=== PATIENT | female | born 1995 | race Caucasian/White ===

== ENCOUNTER 2024-11-22 11:57 | Outpatient (CLI) | payer MEDICAID, SELFPAY ==
[2024-11-22 12:55] LABS: Hematocrit 36.6 % (37.0-47.0); Hemoglobin 12.2 g/dL (12.0-15.0); Mean Corpuscular HGB Conc 33.3 g/dl (32-36); Mean Corpuscular Hemoglobin 29.1 pg (26-34); Mean Corpuscular Volume 87.4 fl (80-100); Platelet Count Result 288 k/mm3 (150-375); Red Blood Count 4.19 M/mm3 (4.2-5.4)
[2024-11-22 14:02] LABS: HIV 1/2 Ab P24 Ag Result Negative (Negative)
--- OUTSIDE RECORDS SUMMARY | 2024-11-22 14:04 | XMS_ITS | Encounter Summary ---
Author Organization [facility] Address [address] [facility] Attn: [place] [address] Care Team Providers Care Glacing Machine Tender Name Role Phone Amado Sylvester DO Primary Care Provider [phone] Encounter Details Date Type Department Care Team (Late st Contact Info) Description 07/06/2006 Outpatient Historical Vikram Correia MD [address] [place] [address] Abdominal Pain, Right Lower Quadrant (Primary Dx) Social History Tobacco Use Types Packs/Day Years Used Date Smoking Tobacco: Never Assessed Comments Unknown Sex and Gender Information Value Date Recorded Sex Assigned at Female 03/04/2024 2:39 PM CDT Legal Sex Female 3:50 AM ART[employer]S MODEL Gender Identity Female 03/04/2024 2:39 PM CDT Sexual Orientation Not on file documented as of this encounter Plan of Treatment Upcoming Encounters Date Type Department Care Team (Late st Contact Info) Description 12/05/[address] [facility] OB Triage [address] [place] [address] [place] [id number] [place] [address] documented as of this encounter Procedures Procedure Name Priority Date/Time Associated Diagnosis Comments CELIAC DISEASE ANTIBODIES Routine 07/06/2006 11:05 AM ARTIST'S MODEL CBC WITH DIFFERENTIAL Routine 07/06/2006 11:05 AM ARTIST'S MODEL CBC WITH DIFFERENTIAL Routine 07/06/2006 11:05 AM ARTIST'S MODEL SEDIMENTATION RATE Routine 07/06/2006 11 :05 AM ARTIST'S MODEL C-REACTIVE PROTEIN Routine 07/06/2006 11 :05 AM ARTIST'S MODEL LIPASE Routine 07/06/2006 11:05 AM ARTIST'S MODEL AMYLASE Routine 07/06/2006 11:05 AM ARTIST'S MODEL COMPREHENSIVE METABOLIC PANEL Routine 07/06/2006 11:05 AM ARTIST'S MODEL documented in this encounter Results * CELIAC DISEASE ANTIBODIES (07/06/2006 11:05 AM ARTIST'S MODEL) TRANSGLUTAMINASE IGA AB <3 <5 U/mL INTERFACE SYSTEM Comment: Reference range: <5 U/mL Negative 5-8 U/mL Equivocal >8 U/mL Positive Lab test performed by: [id number] NITO BOSS MD GLIADIN IGA AB <3 <11 U/mL INTER FACE SYSTEM Comment: Reference Range: <11 U/mL Negative 11-17 U/mL Equivocal >17 U/mL Positive Lab test performed by: [id number] [id number] [place] NITO BOSS MD IGA 71 41 - 368 mg/dL INTERFACE SYSTEM Comment: Lab test performed by: [id number] [id number] [place], [place] NITO BOSS MD 07/06/2006 11:0 5 AM ARTIST'S MODEL us J Shravan Correia MD CHEMISTRY ORDERABLES Final Res ult INTERFACE SYSTEM Refer to clinic/hospital department * CBC WITH DIFFERENTIAL (07/06/2006 11:05 AM ARTIST'S MODEL) NEUTROPHILS 58 36 - 74 % INTERFAC E SYSTEM LYMPHOCYTES 34 18 - 53 % INTERFAC E SYSTEM MONOCYTES 6 2 - 13 % INTERFACE SYSTEM EOSINOPHILS 2 2 - 12 % INTERFAC E SYSTEM BASOPHILS 1 0 - 3 % INTERFACE SYSTEM NEUTROPHIL ABSOLUTE 4.63 K/uL INTERFACE SYSTEM LYMPHOCYTE ABSOLUTE 2.69 K/uL INTERFACE SYSTEM MONOCYTE ABSOLUTE 0.48 K/uL INTERFACE SYSTEM EOSINOPHIL ABSOLUTE 0.15 K/uL INTERFACE SYSTEM BASOPHILS ABSOLUTE 0.04 K/uL INTERFACE SYSTEM 07/06/2006 11:0 5 AM ARTIST'S MODEL Vikram Correia MD HEMATOLOGY ORDERABLES Final Re sult Performing Organization Address [facility] Co de Phone Number INTERFACE SYSTEM Refer to clinic/hospital department * (ABNORMAL) CBC WITH DIFFERENTIAL (07/06/2006 11:05 AM ARTIST'S MODEL) WBC 8.0 4.5 - 13.5 K/uL INTERFACE SYSTEM RBC 4.57 4.00 - 5.20 M/uL INTERFACE SYSTEM HEMOGLOBIN 12.9 11.5 - 15.5 g/dL INTERFACE SYSTEM HEMATOCRIT 37.0 35.0 - 45.0 % INTERFACE SYSTEM MCV 81.0 77.0 - 95.0 fL INTERFACE SYSTEM MCH 28.2 24.0 - 30.0 pg INTERFACE SYSTEM MCHC 34.9 30.0 - 36.0 % INTERFACE SYSTEM RDW 12.9 11.5 - 14.5 % INTERFACE SYSTEM RDW-STDEV 38.1 37.1 - 48.7 fL INTERFACE SYSTEM PLATELETS 410(H) 140 - 350 K/uL INTERFACE SYSTEM MPV 10.4 9.3 - 12.4 fL INTERFACE SYSTEM 07/06/2006 11:0 5 AM ARTIST'S MODEL Vikram Correia MD HEMATOLOGY ORDERABLES Final Re sult Performing Organization Address [facility] Co de Phone Number INTERFACE SYSTEM Refer to clinic/hospital department * LIPASE (07/06/2006 11:05 AM ARTIST'S MODEL) LIPASE 30 13 - 60 U/L INTERFAC E SYSTEM 07/06/2006 11:0 5 AM ARTIST'S MODEL us Vikram Correia MD CHEMISTRY ORDERABLES Final Res ult Performing Organization Address [facility] Phone Number INTERFACE SYSTEM Refer to clinic/hospital department * SEDIMENTATION RATE (07/06/2006 11:05 AM ARTIST'S MODEL) ESR (SEDIMENTATION RATE) 10 0 - 20 mm/hr INTERFACE SYSTEM 07/06/2006 11:0 5 AM ARTIST'S MODEL us Vikram Correia MD HEMATOLOGY ORDERABLES Final Re sult Performing Organization Address [facility] Phone Number INTERFACE SYSTEM Refer to clinic/hospital department * C-REACTIVE PROTEIN (07/06/2006 11:05 AM ARTIST'S MODEL) CRP <0.2 0.0 - 0.8 mg/dL INTERFACE SYSTEM 07/06/2006 11:0 5 AM ARTIST'S MODEL us Vikram Correia MD CHEMISTRY ORDERABLES Final Res ult Performing Organization Address [facility] Phone Number INTERFACE SYSTEM Refer to clinic/hospital department * AMYLASE (07/06/2006 11:05 AM ARTIST'S MODEL) AMYLASE 63 28 - 100 U/L INTERFACE SYSTEM 07/06/2006 11:0 5 AM ARTIST'S MODEL us Vikram Correia MD CHEMISTRY ORDERABLES Final Res ult Performing Organization Address [facility] Phone Number INTERFACE SYSTEM Refer to clinic/hospital department * (ABNORMAL) COMPREHENSIVE METABOLIC PANEL (07/06/2006 11:05 AM ARTIST'S MODEL) GLUCOSE 89 60 - 110 mg/dL INTERFACE SYSTEM CREATININE 0.5 0.2 - 0.7 mg/dL INTERFACE SYSTEM CALCIUM 9.7 8.8 - 10.8 mg/dL INTERFACE SYSTEM ALKALINE PHOSPHATASE 287 35 - 300 U/L INTERFACE SYSTEM AST 44(H) 12 - 32 U/L INTERFACE SYSTEM ALT 18 0 - 31 U/L INTERFACE SYSTEM TOTAL PROTEIN 7.6 6.3 - 8.6 g/dL INTERFACE SYSTEM ALBUMIN 4.6 3.8 - 5.4 g/dL INTERFACE SYSTEM BILIRUBIN TOTAL 0.4 0.2 - 1.0 mg/dL INTERFACE SYSTEM BUN 11 6 - 20 mg/dL INTERFACE SYSTEM SODIUM 138 135 - 145 mmol/L INTERFACE SYSTEM POTASSIUM 3.7 3.5 - 4.9 mmol/L INTERFACE SYSTEM CHLORIDE 103 96 - 108 mmol/L INTERFACE SYSTEM CO2 22 22 - 30 mmol/L INTERFACE SYSTEM 07/06/2006 11:0 5 AM ARTIST'S MODEL us J Shravan Correia MD CHEMISTRY ORDERABLES Final Res ult INTERFACE SYSTEM Refer to clinic/hospital department documented in this encounter Visit Diagnoses Diagnosis Abdominal pain, right lower quadrant- Primary documented in this encounter Care Teams Glacing Machine Tender Relationship Specialty [place] [address] [address] PCP - General Internal Medicine 01/07/19 documented as of this encounter
--- OUTSIDE RECORDS SUMMARY | 2024-11-22 14:04 | XMS_ITS | Clinical Summary ---
Author Organization [facility] Address [address] [place] [address] Care Team Providers Care Marzipan Maker Name Role Phone Amado Sylvester DO Primary Care Provider [phone] Allergies Active Allergy Reactions Criticality Noted Date Comments Gluten Abdominal Pain Low 12/22/2013 Penicillins Hives High 08/20/2021 Medications hyoscyamine (LEVSIN) 0.125 mg tablet Take 1 Tablet (0.125 mg) by mouth 2 times daily as needed for Spasm. 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 Major depressive disorder 12/23/2013 Estimated Date of Delivery Comme nts Yes 12/05/2024 Date entered clovis or to episode creation Resolved Problems Problem Noted Date Diagnosed Date Resolved Date Dysuria 01/07/2019 09/07/2022 Vaginal discharge 04/01/2018 09/07/2022 Screen for STD (sexually transmitted disease) 06/26/20 17 09/07/2022 Encounters Date Type Department Care Team Description 11/14/2024 10:30 AM CDT visit [facility]3] PLANER TAILER [address] [place] [address] Faiza Johnson MD care in third trimester (Primary Dx) 11/09/2024 Telephone [facility] Women's Health Clinical Support [address] [place] [address] Yasemin Ashby, RN 36w 2d transfer out 11/07/2024 11:30 AM CDT visit [facility]3] PLANER TAILER [address] [facility] [address] [place] [address] Jonn Major MD screening for streptococcus B (Primary Dx); Normal , third trimester 11/05/2024 External Device Data STL ABSTRACTION Provider, Abstract 11/04/2024 External Device Data ST[place] ABSTRACTION Provider, Abstract 11/02/2024 External Device Data ST[place] ABSTRACTION Provider, Abstract 10/24/2024 1:00 PM STUDENT TEACHER visit [facility]3] PLANER TAILER [address] [facility] [address] [place] [address] Jonn Maojr MD Normal , third trimester (Primary Dx) 10/19/2024 External Device Data ST[place] ABSTRACTION Provider, Abstract 10/10/2024 11:40 AM STUDENT TEACHER visit [facility]3] PLANER TAILER [address] [facility] [address] [place] [address] Faiza Johnson MD care in third trimester (Primary Dx) 10/10/2024 11:00 AM STUDENT TEACHER Ancillary Procedure [facility]3] PLANER TAILER [address] [facility] [address] [place] [address] Encounter for ultrasound to assess growth 09/27/2024 External Device Data ST[place] ABSTRACTION Provider, Abstract 09/21/2024 External Device Data ST[place] ABSTRACTION Provider, Abstract 09/21/2024 External Device Data ST[place] ABSTRACTION Provider, Abstract 09/15/2024 12:40 PM STUDENT TEACHER Ancillary Procedure [facility] OB Triage [address] [place] [address] Estephania Mata MD 09/15/2024 11:15 AM STUDENT TEACHER - 09/15/2024 1:04 PM STUDENT TEACHER Hospital Encounter [facility] OB Triage [address] [place] [address] Ayo Meyer MD Discharge Disposition: Home or Self Care 09/15/2024 Travel 09/15/2024 Telephone [facility] Clinical Support [address] [place] [address] Jonn Major MD Spotting 09/12/2024 1:30 PM STUDENT TEACHER visit [facility]3] PLANER TAILER [facility] [id number] [place] [address] [address] [place] [address] Jonn Major MD Normal , third trimester (Primary Dx) 09/07/2024 Telephone [facility] Clinical Support [address] [place] [address] Yasemin Ashby, SHADIA Upper Respiratory Symptoms (27w2d ) 08/30/2024 Telephone [facility] Paramedic Management [address] [facility], [address] [place] [address] Mei Marvin, RN Navigator 08/29/2024 11:15 AM STUDENT TEACHER visit [facility]3] PLANER TAILER [facility] [id number] [place] [address] Drive [address] [place] [address] Ayo Meyer MD care in second trimester (Primary Dx); 26 weeks gestation of ; Acute non-recurrent sinusitis, unspecified location from Last 3 Months Immunizations Immunization Administration Dates Next Due (ADACEL/BOOSTRIX)(10 YR UP) TDAP VACCINE, 0.5ML, IM 04/16/2016,04/17/2009 (GARDASIL)(9-45 YRS) HUMAN PAPILLOMAVIRUS VACCINE, TYPES 6, 11, 16, 18, QUADRIVALENT (4VHPV), 3 DOSE, IM 10/14/2013,06/07/2013,03/31/2012 (HAVRIX/VAQTA)(12 MO-18 YRS) HEPATITIS A VACCINE 0.5 ML PED/ADOL 2 DOSE, IM 04/17/2009 (INFANRIX)(6 WKS-6 YRS) DIPT HERIA, TETANUS TOXOIDS, AND ACCELLULAR PERTUSSIS VACCINE (DTAP), 0.5 ML IM 09/07/2002,02/25/1999,02/16/1998,12/04,1997 (IPOL)(6 WKS AND UP) POLIOVI ISABELA VACCINE, INACTIVATED (IPV), 3 DOSE, SUBCUT OR IM 09/07/2002,11/26/1998,1997,10/24 (M-M-R II/PRIORIX)(12 MO UP) MEASLES, MUMPS AND RUBELLA VIRUS VACCINE, 0.5 ML IM/SUBCUT 09/07/2002,09/03/1998 (VARIVAX)(12 MOS UP)VARICELL A VIRUS VACCINE (PF) 0.5 ML, SUB CUT 09/29/2007,09/03/1998 HIB, Unspecified Formulation 11/26/1998, 02/16/1998,1997,10/24 Hepatitis A Vaccine 09/29/2007 Hepatitis B Vaccine 05/18/1998,1997,1997 INFLUENZA VACCINE QUADRIVALE NT 2-49 YRS NASAL 06/07/2013 INFLUENZA VACCINE QUADRIVALE NT 3 YR UP PF IM 07/17/2015 Influenza Vaccine Nasal 07/07/2011,06/24/2010, Influenza Vaccine Quad Split 3+ Yrs Pf Im 09/22/2014 Influenza Vaccine Split 3+ Yrs IM 07/13/2012 Meningococcal A Conjugate Vaccine IM 04/16/2016, 12/14/2009 Family History Medical History Relation Name Comments Celiac Disease Brother 1 Celiac Disease Brother 2 Drug Abuse Father Unknown Maternal Grandfather Unknown Maternal Grandmother Celiac Disease Mother Colon Cancer Other great pat gma Unknown Paternal Grandfather Unknown Paternal Grandmother Celiac Disease Sister 1 Celiac Disease Sister 2 Breast Cancer Neg Hx Ovarian Cancer Neg Hx Relation Name Status Comments Brother 1 Alive Brother 2 Alive Father Alive Maternal Grandfather Alive Maternal Grandmother Alive Mother Alive Other great pat gma Paternal Grandfather Alive Paternal Grandmother Alive Sister 1 Alive Sister 2 Alive Social History Tobacco Use Types Packs/Day Years Used Date Smoking Tobacco: Never Smokeless Tobacco: Never Alcohol Use Standard Drinks/Week Comments No 0 (1 standard drink = 0.6 oz pur e alcohol) Feeling Safe Answer Date Recorded Are you in a relationship wi th someone who hurts you emotionally and/or physically? No 09/15/2024 Estimated Date of Delivery Comme nts Yes 12/05/2024 Date entered clovis or to episode creation Sex and Gender Information Value Date Recorded Sex Assigned at Female 03/04/2024 2:39 PM CDT Legal Sex Female 3:50 AM STUDENT TEACHER Gender Identity Female 03/04/2024 2:39 PM CDT Sexual Orientation Not on file Occupation Industry Job Start Date Job End Date Not on file Not on file Not on file Not on file Last Filed Vital Signs Vital Sign Reading Time Taken Comments Blood Pressure 124/82 11/14/2024 10:53 AM CDT Pulse 97 05/09/2020 2:22 PM CDT Temperature 36.8 C (98.2 F) 09/15/2024 12:10 PM STUDENT TEACHER Respiratory Rate 18 09/15/2024 12:10 PM STUDENT TEACHER Oxygen Saturation 97% 05/09/2020 2:22 PM CDT Inhaled Oxygen Concentration - - Weight 101.4 kg (223 lb 8 oz) 11/14/2024 10:53 A M CDT Height 172.7 cm (5' 8 ) 11/14/2024 10:53 AM CDT Body Mass Index 33.98 11/14/2024 10:53 AM CDT Plan of Treatment Upcoming Encounters Date Type Department Care Team (Late st Contact Info) Description 12/05/2024 Hospital Encounter [facility] OB Triage [address] [place] [address] [place] [address] [place] [address] Health Maintenance Due Date Last Done Comments INFLUENZA VACCINE (#1) 2024 5, 09/22/2014, 06/07/2013, Additional history exists CERVICAL CANCER SCREENING 09/10/2025 PAP SMEAR 09/10/2025 09/10/2022, 08/01, 04/10/2020, Additional history exists PAP SMEAR 09/10/2025 09/10/2022, 08/01, 04/10/2020, Additional history exists DTAP/TDAP/TD VACCINES (8 - T d or Tdap) 04/16/2026 04/16/2016, 04/17/2009, 09/07/2002, Additional history exists HPV/Cotest 09/10/2027 09/10/2022, 03/31, 04/08/2019, Additional history exists HEPATITIS B VACCINES Completed 05/18/1998, 1997, 1997 HPV VACCINES Completed 10/14/2013, 03/2013, 03/31/2012 CHLAMYDIA SCREENING (ANNUAL) 11-24 YEARS Discontinued 05/04/2024, 02/26/2023, 09/10/2022, Additional history exists RSV VACCINE (60+ or ) (No Doses Required) Completed Procedures Procedure Name Priority Date/Time Associated Diagnosis Comments (BROTH-ENRICHED) GROUP B STREP DETECTION Routine 11/07/2024 12:00 AM CDT screening for streptococcus B US OB FOLLOW UP PER FETUS Routine 10/10/2024 11:42 AM STUDENT TEACHER Encounter for ultrasound to assess growth US POC ULTRASOUND BEDSIDE Routine 09/15/2024 12:36 PM STUDENT TEACHER RPR Routine 08/29/2024 11:04 AM STUDENT TEACHER care in second trimester GLUCOSE TOLERANCE 1 HR GESTATIONAL Routine 08/29/2024 11:04 AM STUDENT TEACHER care in second trimester CBC WITH DIFFERENTIAL Routine 08/29/2024 11:04 AM STUDENT TEACHER care in second trimester GC/CHLAMYDIA, UROGENITAL Routine 05/04/2024 12:00 AM CDT Positive test CERV/VAG CYTO SCREEN PAP W/HPV Routine 09/10/2022 12:00 AM STUDENT TEACHER Screening for cervical cancer from Last 3 Months or Most Recently Relevant to Health Maintenance Results * (BROTH-ENRICHED) GROUP B STREP DETECTION (11/07/2024 12:00 AM CDT) SOURCE *VAGINAL/REC [facility] GROUP B STREP BY PCR NOT DETECTED NOT DETECTED [facility] Comment: Note per CDC guidelines optimal recovery is achieved by swabbing both the lower vagina and rectum (through the anal sphincter). Test Performed at: [facility] [address] [place] [address] Luis Manuel Cao MD Genital (Vaginal/rectal) 11/07/2024 11/08/2024 4:04 AM CDT us Jonn Major MD MICROBIOLOGY - [facility] Final Result [facility] [phone] [facility] [address] [place] [address] * US OB FOLLOW UP PER FETUS (10/10/2024 11:42 AM STUDENT TEACHER) Anatomical Region Laterality Modality Pelvis Ultrasound 10/10/2024 11:0 7 AM STUDENT TEACHER Narrative 10/10/2024 12:09 PM STUDENT TEACHER CLINIC GROWTH ----- Pat. Name: MAI JORDAN Study Date: 10/10/2024 11:07am Pat. NO: [id number] Referring MD: AYO RODRIGUEZ MD Site: [facility] Loan Examiner: Belem Beth RDMS : 1995 Age: 29 ----- INDICATION ----- Supervision of Normal CODING ----- Diagnoses Z3A.32: Weeks of gestation Z34.83: Encounter for supervision of normal , unspecified Procedures [id number]: Ultrasound, uterus, real time with image documentation, follow up, transabdominal approach per fetus HISTORY ----- OB History 1. Para 0 MATERNAL ASSESSMENT ----- Physical Exam Weight 96 kg. Initial weight 79 kg, 174 lb. BMI 32.23 kg/m . Initial BMI 26.46 kg/m . Weight gain 17 kg, 38 lb METHOD ----- Transabdominal ultrasound examination ----- Leo . Number of fetuses: 1 DATING ----- Method of dating: based on the LMP LMP on: 02/29/2024 GA by LMP 32 w + 0 d KEVIN by LMP: 12/05/2024 GA by prior assessment 32 w + 0 d KEVIN by prior assessment: 12/05/2024 Ultrasound examination on: 10/10/2024 GA by U/S based upon: AC, BPD, EFW, Femur, HC GA by U/S 33 w + 5 d KEVIN by U/S: 11/23/2024 Assigned: based on the LMP, selected on 10/10/2024 Assigned GA 32 w + 0 d Assigned KEVIN: 12/05/2024 GENERAL EVALUATION ----- Cardiac activity present. FHR 161 bpm. Presentation: cephalic Placenta: posterior Umbilical cord: 3 vessel cord Amniotic fluid: normal amount, MVP 5.3 cm. VESNA 15.9 cm. Q1 4.0 cm, Q2 5.3 cm, Q3 3.9 cm, Q4 2.8 cm BIOMETRY ----- BPD 89.3 mm 36w 1d >99% Hadlock OFD 101.3 mm 32w 5d 71% Randy HC 305.0 mm 34w 0d 66% Hadlock AC 289.9 mm 33w 0d 77% Hadlock Femur 63.1 mm 32w 4d 55% Hadlock HC / AC 1.05 43% Nicolaides Weight Calculation: EFW 2,156 g 33w 0d 78% Hadlock EFW (lb,oz) 4 lb 12 oz EFW by Hadlock (EIQ-KG-AC-FL) Head / Face / Neck Biometry: Cephalic index 0.88 99% Nicolaides Extremities / Bony Struc Biometry: FL / BPD 0.71 FL / HC 0.21 FL / AC 0.22 ANATOMY ----- The following structures appear normal: Heart / Thorax 4-chamber view. RVOT view. LVOT view. Cardiac rhythm. Diaphragm. Abdomen Stomach. Kidneys. Bladder. IMPRESSION ----- Leo viable intrauterine at 32w 0d in cephalic presentation. Growth is Normal with estimated weight 2156 g (78%ile) Amniotic fluid volume is 15.9 cm (maximum vertical pocket = 5.3 cm) Unremarkable limited anatomic views Recommendation: Routine care Procedure Note Faiza Johnson MD - 10/10/2024 CLINIC GROWTH ----- Pat. Name:Alyce JORDAN Date:10/10/2024 11:07am Pat. NO: [id number] MD:AYO RODRIGUEZ MD [facility] RD[facility] :1995Age:29 ----- INDICATION ----- Supervision of Normal CODING ----- Diagnoses Z3A.32: Weeks of gestation Z34.83: Encounter for supervision of normalpregnancy, unspecified Procedures [id number]: Ultrasound, uterus, real time withimage documentation, follow up, transabdominal approach per fetus HISTORY ----- OB History 1. Para 0 MATERNAL ASSESSMENT ----- Physical Exam Weight 96 kg. Initial weight 79 kg, 174 lb. BMI32.23 kg/m . Initial BMI 26.46 kg/m . Weight gain 17 kg, 38 lb METHOD ----- Transabdominal ultrasound examination ----- Leo . Number of fetuses: 1 DATING ----- Method of dating:based on the LMP LMP on:02/29/2024 GA by LMP32 w + 0 d KEVIN by LMP:12/05/2024 GA by prior [email or web address] w + 0 d KEVIN by prior assessment:12/05/2024 Ultrasound examination on:10/10/2024 GA by U/S based upon:AC, BPD, EFW, Femur, HC GA by U/S33 w + 5 d KEVIN by U/S:11/23/2024 Assigned:based on the LMP, selected on 10/10/2024 Assigned GA32 w + 0 d Assigned KEVIN:12/05/2024 GENERAL EVALUATION ----- Cardiac activity present. FHR 161 bpm. Presentation: cephalic Placenta: posterior Umbilical cord: 3 vessel cord Amniotic fluid: normal amount, MVP 5.3 cm. VESNA 15.9 cm. Q1 4.0 cm, Q2 5.3cm, Q3 3.9 cm, Q4 2.8 cm BIOMETRY ----- BPD 89.3 mm 36w 1d >99%Hadlock OFD 101.3 mm 32w 5d 71%Randy HC 305.0 mm 34w 0d 66%Hadlock AC 289.9 mm 33w 0d 77%Hadlock Femur 63.1 mm 32w 4d 55%Hadlock HC / AC 1.05 43%Nicolaides Weight Calculation: EFW 2,156 g 33w 0d78% Hadlock EFW (lb,oz) 4 lb 12 oz EFW by Hadlock ([id number]) Head / Face / Neck Biometry: Cephalic index 0.88 99%Nicolaides Extremities / Bony Struc Biometry: FL / BPD 0.71 FL / HC 0.21 FL / AC 0.22 ANATOMY ----- The following structures appear normal: Heart / Thorax 4-chamber view. RVOT view. LVOT view. Cardiacrhythm. Diaphragm. Abdomen Stomach. Kidneys. Bladder. IMPRESSION ----- Leo viable intrauterine at 32w 0d in cephalicpresentation. Growth is Normal with estimated weight 2156 g (78%ile) Amniotic fluid volume is 15.9 cm (maximum vertical pocket = 5.3 cm) Unremarkable limited anatomic views Recommendation: Routine care us Jonn Major MD US ORDERABLES Final Resul t * US POC ULTRASOUND BEDSIDE (09/15/2024 12:36 PM STUDENT TEACHER) Narrative 09/15/2024 12:36 PM STUDENT TEACHER This exam was auto finalized to allow images to be stored to PACS. Please see associated Progress Note/Procedure Note from the same date. Estephania Mata MD US ORDERABLES Final Result * GLUCOSE TOLERANCE 1 HR GESTATIONAL (08/29/2024 11:04 AM STUDENT TEACHER) Pathologist [facility] GLUCOSE 1 HR OBSTETRIC 96 <135 mg/dL [facility] Comment: Test Performed at: [facility] [address] [place] [address] ElsaGraciela Cao Blood 08/29/2024 11:0 4 AM STUDENT TEACHER 08/29/2024 11:05 AM STUDENT TEACHER Ayo Rodriguez MD CHEMISTRY ORDERAB LES Final Result [facility] [phone] [facility] [address] [place] [address] * (ABNORMAL) CBC WITH DIFFERENTIAL (08/29/2024 11:04 AM STUDENT TEACHER) [facility] WBC 11.2(H) 3.8 - 10.8 Thousand/ uL [facility] RBC 3.87 3.80 - 5.10 Million/u L [facility] HEMOGLOBIN 11.3(L) 11.7 - 15.5 g/dL [facility] HEMATOCRIT 35.7 35.0 - 45.0 % [facility] MCV 92.2 80.0 - 100.0 fL [facility] MCH 29.2 27.0 - 33.0 pg [facility] MCHC 31.7(L) 32.0 - 36.0 g/dL [facility] Comment: For adults, a slight decrease in the calculated MCHC value (in the range of 30 to 32 g/dL) is most likely not clinically significant; however, it should be interpreted with caution in correlation with other red cell parameters and the patient's clinical condition. RDW 13.1 11.0 - 15.0 % [facility] PLATELETS 305 140 - 400 Thousand/ uL [facility] MPV 10.1 7.5 - 12.5 fL [facility] NEUTROPHIL ABSOLUTE 8,042(H) 1,500 - 7,800 cells/uL [facility] LYMPHOCYTE ABSOLUTE 2,453 850 - 3,900 cells/uL [facility] MONOCYTE ABSOLUTE 437 200 - 950 cells/uL [facility] EOSINOPHIL ABSOLUTE 224 15 - 500 cells/uL [facility] BASOPHILS ABSOLUTE 45 0 - 200 cells/uL [facility] NEUTROPHIL 71.8 % [facility] LYMPHOCYTES 21.9 % [facility] MONOCYTE 3.9 % [facility] EOSINOPHILS 2.0 % [facility] BASOPHILS 0.4 % [facility] Comment: Test Performed at: [facility] [address] [place] [address] Luis Manuel Cao Blood 08/29/2024 11:0 4 AM STUDENT TEACHER 08/29/2024 11:05 AM STUDENT TEACHER Ayo Rodriguez MD HEMATOLOGY ORDERA BLES Final Result [facility] [phone] [facility] [address] [place] [address] * RPR (08/29/2024 11:04 AM STUDENT TEACHER) RPR NON-REACTI VE NON-REACTI VE [facility] Comment: No laboratory evidence of syphilis. If recent exposure is suspected, submit a new sample in 2-4 weeks. Test Performed at: [facility] [address] [place] [address] ElsaDesire Cao MD Blood 08/29/2024 11:0 4 AM STUDENT TEACHER 08/29/2024 11:05 AM STUDENT TEACHER Ayo Rodriguez MD CHEMISTRY ORDERAB LES Final Result Performing Organization Address City/State/ZIP Co pr Phone Number [facility] [phone] [facility] [address] [place] [address] * GC/CHLAMYDIA, UROGENITAL (05/04/2024 12:00 AM CDT) Pathologist [facility] CHLAMYDIA TRACHOMATIS RNA, TMA, UROGENITAL NOT DETECTED NOT DETECTED [facility] [place] NEISSERIA GONORRHOEAE RNA, TMA, UROGENITAL NOT DETECTED NOT DETECTED [facility] [place] COMMENT INFECTIOUS DISEASE [facility] [place] Comment: The analytical performance characteristics of this assay, when used to test SurePath(TM) specimens have been determined by [facility]. The modifications have not been cleared or approved by the FDA. This assay has been validated pursuant to the CLIA regulations and is used for clinical purposes. For additional information, please refer to https://education.NiteTables/faq/BOL302 (This link is being provided for information/ educational purposes only.) Test Performed at: [facility] [address] [place] [address] Luis Manuel Cao MD Urine (Urine, 1st catch) 05/04/2024 05/05/2024 6:06 AM CDT Ayo Rodriguez MD MICROBIOLOGY - [facility] ORDERABLES Final Result [facility] [phone] [facility] [address] [place] [address] * CERV/VAG CYTO SCREEN PAP W/HPV (09/10/2022 12:00 AM STUDENT TEACHER) Pathologist [facility] CLINICAL INFORMATION [facility] [place] Comment:SCREENING LAST MENSTRUAL PERIOD [facility] [place] Comment:NONE GIVEN PREV PAP: [facility] [place] Comment:NONE GIVEN PREV BX: [facility] [place] Comment:NONE GIVEN SOURCE [facility] [place] Comment:Endocervix ADEQUACY: [facility] [place] Comment: Satisfactory for evaluation. Endocervical/transformation zone component present. Age and/or menstrual status not provided PAP INTERP [facility] [place] Comment:Negative for intraep ithelial lesion or malignancy. COMMENT (PAP TEST) [facility] [place] Comment: This Pap test has been evaluated with computer assisted technology. OPEN END SPINNING OPERATOR: Lois Maciel Comment: VIET RUIZ(ASCP) CT Screening Location: [place] [address] [place], [facility] EXPLANATORY NOTE [facility] Comment: EXPLANATORY NOTE: The Pap is a screening test for cervical cancer. It is not a diagnostic test and is subject to false negative and false positive results. It is most reliable when a satisfactory sample, regularly obtained, is submitted with relevant clinical findings and history, and when the Pap result is evaluated along with historic and current clinical information. HPV E6/E7 Not Detected Not Detected [facility] Comment: Methodology: Railroad Brakeman-Mediated Amplification This assay detects E6/E7 viral messenger RNA (mRNA) from 14 high-risk HPV types (16,18,31,33,35,39,45,51,52,56,58,59,66,68). Cervical sources are required for HPV testing. If a vaginal source from a patient who has had a total hysterectomy with removal of cervix was submitted, please contact the testing laboratory for alternative testing options. For additional information, please refer to http://education.NiteTables/faq/FCL413x2 (This link if provided for information/ educational purposes only.) Test Performed at: [facility] [address] [address] Rich Barriga D.O., MPH SL SWAB OF ENDOCERVIX / Unknown 09/10/2022 09/10/2022 8:28 PM STUDENT TEACHER Ayo Rodriguez MD PATHOLOGY/CYTOLOG Y ORDERABLES Final Result [facility] [phone] [facility] [address] [address] from Last 3 Months or Most Recently Relevant to Health Maintenance Advance Directives For more information, please contact: [phone] * Full Code (Latest Code Status on File) Date Activated Date Inactivated Comments 09/15/2024 11:21 AM 09/15/2024 3:23 PM * Full Code Date Activated Date Inactivated Comments 12/22/2013 3:29 PM 12/26/2013 2:30 PM * Full Code Date Activated Date Inactivated Comments 12/13/2013 9:34 AM 12/13/2013 1:24 PM Care Teams Marzipan Maker Relationship Specialty [place] [address] [address] PCP - General Internal Medicine 01/07/19
--- OUTSIDE RECORDS SUMMARY | 2024-11-22 14:04 | XMS_ITS | Encounter Summary ---
Author Organization [facility] Address [address] [facility] Attn: [place] [address] Care Team Providers Care Marine Equipment Design Engineer Name Role Phone Amado Sylvester DO Primary Care Provider [phone] Encounter Details Date Type Department Care Team (Late st Contact Info) Description 03/07/2004 Outpatient Historical Vikram Correia MD [address] [place] [address] Social History Tobacco Use Types Packs/Day Years Used Date Smoking Tobacco: Never Assessed Comments Unknown Sex and Gender Information Value Date Recorded Sex Assigned at Female 03/04/2024 2:39 PM CDT Legal Sex Female 3:50 AM ENTERTAINER & COMIC Gender Identity Female 03/04/2024 2:39 PM CDT Sexual Orientation Not on file documented as of this encounter Plan of Treatment Upcoming Encounters Date Type Department Care Team (Late st Contact Info) Description 12/05/2024 Hospital Encounter [facility] OB Triage [address] [place] [address] [place] [address] [place] [address] documented as of this encounter Visit Diagnoses Not on filedocumented in this encounter Care Teams Marine Equipment Design Engineer Relationship Specialty [place] [address] [address] PCP - General Internal Medicine 01/07/19 documented as of this encounter
--- OUTSIDE RECORDS SUMMARY | 2024-11-22 14:04 | XMS_ITS | Encounter Summary ---
Author Organization [facility] Address [address] [facility] Attn: [place] [address] Care Team Providers Care Bakery Decorator Name Role Phone Amado Sylvester DO Primary Care Provider [phone] Encounter Details Date Type Department Care Team (Late st Contact Info) Description 03/04/2000 Outpatient Historical Claire Pittman MD [address] [place] [address] Social History Tobacco Use Types Packs/Day Years Used Date Smoking Tobacco: Never Assessed Comments Unknown Sex and Gender Information Value Date Recorded Sex Assigned at Female 03/04/2024 2:39 PM CDT Legal Sex Female 3:50 AM ELECTRON MICROPROBE OPERATOR Gender Identity Female 03/04/2024 2:39 PM CDT Sexual Orientation Not on file documented as of this encounter Plan of Treatment Upcoming Encounters Date Type Department Care Team (Late st Contact Info) Description 12/05/2024 Hospital Encounter [facility] OB Triage [address] [place] [address] [place] [address] [place] [address] documented as of this encounter Visit Diagnoses Not on filedocumented in this encounter Care Teams Bakery Decorator Relationship Specialty [place] [address] [address] PCP - General Internal Medicine 01/07/19 documented as of this encounter
--- OUTSIDE RECORDS SUMMARY | 2024-11-22 14:04 | XMS_ITS | Encounter Summary ---
Author Organization [facility] Address [address] [facility] Attn: [place] [address] Care Team Providers Care Crew Supervisor Name Role Phone Amado Sylvester DO Primary Care Provider [phone] Encounter Details Date Type Department Care Team (Late st Contact Info) Description 09/23/2004 Outpatient Historical Vikram Correia MD [address] [place] [address] Social History Tobacco Use Types Packs/Day Years Used Date Smoking Tobacco: Never Assessed Comments Unknown Sex and Gender Information Value Date Recorded Sex Assigned at Female 03/04/2024 2:39 PM CDT Legal Sex Female 3:50 AM PAN HELPER Gender Identity Female 03/04/2024 2:39 PM CDT Sexual Orientation Not on file documented as of this encounter Plan of Treatment Upcoming Encounters Date Type Department Care Team (Late st Contact Info) Description 12/05/2024 Hospital Encounter [facility] OB Triage [address] [place] [address] [place] [address] [place] [address] documented as of this encounter Visit Diagnoses Not on filedocumented in this encounter Care Teams Crew Supervisor Relationship Specialty [place] [address] [address] PCP - General Internal Medicine 01/07/19 documented as of this encounter
--- OUTSIDE RECORDS SUMMARY | 2024-11-22 14:04 | XMS_ITS | Encounter Summary ---
Author Organization [facility] Address [address] [facility] [address] Attn: [place] [address] Care Team Providers Care Educational Paraprofessional Name Role Phone Amado Sylvester DO Primary Care Provider [phone] Encounter Details Date Type Department Care Team (Late st Contact Info) Description 04/08/1999 Outpatient Historical Claire Pittman MD [address] [place] [address] Social History Tobacco Use Types Packs/Day Years Used Date Smoking Tobacco: Never Assessed Comments Unknown Sex and Gender Information Value Date Recorded Sex Assigned at Female 03/04/2024 2:39 PM CDT Legal Sex Female 3:50 AM SILK SCREEN REPAIRER Gender Identity Female 03/04/2024 2:39 PM CDT Sexual Orientation Not on file documented as of this encounter Plan of Treatment Upcoming Encounters Date Type Department Care Team (Late st Contact Info) Description 12/05/2024 Hospital Encounter [facility] OB Triage [address] [place] [address] [place] [address] [place] [address] documented as of this encounter Visit Diagnoses Not on filedocumented in this encounter Care Teams Educational Paraprofessional Relationship Specialty [place] [address] [address] PCP - General Internal Medicine 01/07/19 documented as of this encounter
--- OUTSIDE RECORDS SUMMARY | 2024-11-22 14:04 | XMS_ITS | Encounter Summary ---
Author Organization [facility] Address [address] [facility] Attn: [place] [address] Care Team Providers Care Bone Puller Name Role Phone Amado Sylvester DO Primary Care Provider [phone] Encounter Details Date Type Department Care Team (Late st Contact Info) Description 08/02/1999 Outpatient Historical Vikram Correia MD [address] [place] [address] Social History Tobacco Use Types Packs/Day Years Used Date Smoking Tobacco: Never Assessed Comments Unknown Sex and Gender Information Value Date Recorded Sex Assigned at Female 03/04/2024 2:39 PM CDT Legal Sex Female 3:50 AM GRADUATE INTERNSHIP Gender Identity Female 03/04/2024 2:39 PM CDT Sexual Orientation Not on file documented as of this encounter Plan of Treatment Upcoming Encounters Date Type Department Care Team (Late st Contact Info) Description 12/05/2024 Hospital Encounter [facility] OB Triage [address] [place] [address] [place] [address] [place] [address] documented as of this encounter Visit Diagnoses Not on filedocumented in this encounter Care Teams Bone Puller Relationship Specialty [place] [address] [address] PCP - General Internal Medicine 01/07/19 documented as of this encounter
--- OUTSIDE RECORDS SUMMARY | 2024-11-22 14:04 | XMS_ITS | Encounter Summary ---
Author Organization [facility] Address [address] [facility] Attn: [place] [address] Care Team Providers Care Cash Grain Farmer Name Role Phone Amado Sylvester DO Primary Care Provider [phone] Encounter Details Date Type Department Care Team (Late st Contact Info) Description 10/14/2005 Outpatient Historical Vikram Correia MD [address] [place] [address] Social History Tobacco Use Types Packs/Day Years Used Date Smoking Tobacco: Never Assessed Comments Unknown Sex and Gender Information Value Date Recorded Sex Assigned at Female 03/04/2024 2:39 PM CDT Legal Sex Female 3:50 AM CLOTH WIRE WEAVER Gender Identity Female 03/04/2024 2:39 PM CDT Sexual Orientation Not on file documented as of this encounter Plan of Treatment Upcoming Encounters Date Type Department Care Team (Late st Contact Info) Description 12/05/2024 Hospital Encounter [facility] OB Triage [address] [place] [address] [place] [address] [place] [address] documented as of this encounter Visit Diagnoses Not on filedocumented in this encounter Care Teams Cash Grain Farmer Relationship Specialty [place] [address] [address] PCP - General Internal Medicine 01/07/19 documented as of this encounter
--- OUTSIDE RECORDS SUMMARY | 2024-11-22 14:04 | XMS_ITS | Encounter Summary ---
Author Organization [facility] Address [address] [facility] Attn: [place] [address] Care Team Providers Care Viscosity Worker Name Role Phone Amado Sylvester DO Primary Care Provider [phone] Encounter Details Date Type Department Care Team (Late st Contact Info) Description 02/25/1999 Outpatient Historical Vikram Correia MD [address] [place] [address] Social History Tobacco Use Types Packs/Day Years Used Date Smoking Tobacco: Never Assessed Comments Unknown Sex and Gender Information Value Date Recorded Sex Assigned at Female 03/04/2024 2:39 PM CDT Legal Sex Female 3:50 AM SEAFOOD HARVESTER Gender Identity Female 03/04/2024 2:39 PM CDT Sexual Orientation Not on file documented as of this encounter Plan of Treatment Upcoming Encounters Date Type Department Care Team (Late st Contact Info) Description 12/05/2024 Hospital Encounter [facility] OB Triage [address] [place] [address] [place] [address] [place] [address] documented as of this encounter Visit Diagnoses Not on filedocumented in this encounter Care Teams Viscosity Worker Relationship Specialty [place] [address] [address] PCP - General Internal Medicine 01/07/19 documented as of this encounter
--- OUTSIDE RECORDS SUMMARY | 2024-11-22 14:04 | XMS_ITS | Encounter Summary ---
Author Organization [facility] Address [address] [facility] Attn: [place] [address] Care Team Providers Care Air Conditioning Installer Supervisor Name Role Phone Amado Sylvester DO Primary Care Provider [phone] Encounter Details Date Type Department Care Team (Late st Contact Info) Description 04/08/2006 Outpatient Historical Vikram Correia MD [address] [place] [address] Social History Tobacco Use Types Packs/Day Years Used Date Smoking Tobacco: Never Assessed Comments Unknown Sex and Gender Information Value Date Recorded Sex Assigned at Female 03/04/2024 2:39 PM CDT Legal Sex Female 3:50 AM SAW OPERATOR Gender Identity Female 03/04/2024 2:39 PM CDT Sexual Orientation Not on file documented as of this encounter Plan of Treatment Upcoming Encounters Date Type Department Care Team (Late st Contact Info) Description 12/05/2024 Hospital Encounter [facility] OB Triage [address] [place] [address] [place] [address] [place] [address] documented as of this encounter Visit Diagnoses Not on filedocumented in this encounter Care Teams Air Conditioning Installer Supervisor Relationship Specialty [place] [address] [address] PCP - General Internal Medicine 01/07/19 documented as of this encounter
--- OUTSIDE RECORDS SUMMARY | 2024-11-22 14:04 | XMS_ITS | Encounter Summary ---
Author Organization [facility] Address [address] [place] [address] Care Team Providers Care Wastewater Treatment Plant Attendant Name Role Phone Amado Sylvester Primary Care Provider [phone] Encounter Details Date Type Department Care Team (Late Contact Info) Description 05/11/2006 Outpatient Historical [facility] Kebede, Bony Castañeda MD [address] [place] [address] Unspecified Constipation (Primary Dx) Social History Tobacco Use Types Packs/Day Years Used Date Smoking Tobacco: Never Assessed Comments Unknown Sex and Gender Information Value Date Recorded Sex Assigned at Female 03/04/2024 2:39 PM CDT Legal Sex Female 3:50 AM SOLAR PHOTOVOLTAIC CREW LEAD Gender Identity Female 03/04/2024 2:39 PM CDT Sexual Orientation Not on file documented as of this encounter Plan of Treatment Upcoming Encounters Date Type Department Care Team (Late Contact Info) Description 12/05/2024 Hospital Encounter [facility] OB Triage [address] [place] [address] [place] [address] [place] [address] documented as of this encounter Visit Diagnoses Diagnosis Unspecified constipation- Primary documented in this encounter Care Teams Wastewater Treatment Plant Attendant Relationship Specialty [place] [address] [place] [address] [address] PCP - General Internal Medicine 01/07/19 documented as of this encounter
--- OUTSIDE RECORDS SUMMARY | 2024-11-22 14:04 | XMS_ITS | Encounter Summary ---
Author Organization [facility] Address [address] [facility] Attn: [place] [address] Care Team Providers Care Sped Teacher Name Role Phone Amado Sylvester DO Primary Care Provider [phone] Encounter Details Date Type Department Care Team (Late st Contact Info) Description 09/07/2002 Outpatient Historical Vikram Correia MD [address] [place] [address] Social History Tobacco Use Types Packs/Day Years Used Date Smoking Tobacco: Never Assessed Comments Unknown Sex and Gender Information Value Date Recorded Sex Assigned at Female 03/04/2024 2:39 PM CDT Legal Sex Female 3:50 AM EXPERIMENTAL OUTBOARD MOTORS MECHANIC Gender Identity Female 03/04/2024 2:39 PM CDT Sexual Orientation Not on file documented as of this encounter Plan of Treatment Upcoming Encounters Date Type Department Care Team (Late st Contact Info) Description 12/05/2024 Hospital Encounter [facility] OB Triage [address] [place] [address] [place] [address] [place] [address] documented as of this encounter Visit Diagnoses Not on filedocumented in this encounter Care Teams Sped Teacher Relationship Specialty [place] [address] [address] PCP - General Internal Medicine 01/07/19 documented as of this encounter
--- OUTSIDE RECORDS SUMMARY | 2024-11-22 14:04 | XMS_ITS | Encounter Summary ---
Author Organization [facility] Address [address] [facility] Attn: [place] [address] Care Team Providers Care Furnace Mechanic Helper Name Role Phone Amado Sylvester DO Primary Care Provider [phone] Encounter Details Date Type Department Care Team (Late st Contact Info) Description 04/28/2006 Outpatient Historical Vikram Correia MD [address] [place] [address] Dysuria (Primary Dx) Social History Tobacco Use Types Packs/Day Years Used Date Smoking Tobacco: Never Assessed Comments Unknown Sex and Gender Information Value Date Recorded Sex Assigned at Female 03/04/2024 2:39 PM CDT Legal Sex Female 3:50 AM BALER OPERATOR Gender Identity Female 03/04/2024 2:39 PM CDT Sexual Orientation Not on file documented as of this encounter Plan of Treatment Upcoming Encounters Date Type Department Care Team (Late st Contact Info) Description 12/05/2024 Hospital Encounter [facility] OB Triage [address] [place] [address] [place] [address] [place] [address] documented as of this encounter Visit Diagnoses Diagnosis Dysuria- Primary documented in this encounter Care Teams Furnace Mechanic Helper Relationship Specialty [place] [address] [address] PCP - General Internal Medicine 01/07/19 documented as of this encounter
--- OUTSIDE RECORDS SUMMARY | 2024-11-22 14:04 | XMS_ITS | Encounter Summary ---
Author Organization [facility] Address [address] [facility] Attn: [place] [address] Care Team Providers Care Battery Filler Name Role Phone Amado Sylvester DO Primary Care Provider [phone] Encounter Details Date Type Department Care Team (Late st Contact Info) Description 09/17/2001 Outpatient Historical Vikram Correia MD [address] [place] [address] Social History Tobacco Use Types Packs/Day Years Used Date Smoking Tobacco: Never Assessed Comments Unknown Sex and Gender Information Value Date Recorded Sex Assigned at Female 03/04/2024 2:39 PM CDT Legal Sex Female 3:50 AM TAXONOMIST Gender Identity Female 03/04/2024 2:39 PM CDT Sexual Orientation Not on file documented as of this encounter Plan of Treatment Upcoming Encounters Date Type Department Care Team (Late st Contact Info) Description 12/05/2024 Hospital Encounter [facility] OB Triage [address] [place] [address] [place] [address] [place] [address] documented as of this encounter Visit Diagnoses Not on filedocumented in this encounter Care Teams Battery Filler Relationship Specialty [place] [address] [address] PCP - General Internal Medicine 01/07/19 documented as of this encounter
--- OUTSIDE RECORDS SUMMARY | 2024-11-22 14:04 | XMS_ITS | Encounter Summary ---
Author Organization [facility] Address [address] [facility] Attn: [place] [address] Care Team Providers Care School Bus Driver/Custodian Name Role Phone Amado Sylvester DO Primary Care Provider [phone] Encounter Details Date Type Department Care Team (Late st Contact Info) Description 10/05/2000 Outpatient Historical Vikram Correia MD [address] [place] [address] Social History Tobacco Use Types Packs/Day Years Used Date Smoking Tobacco: Never Assessed Comments Unknown Sex and Gender Information Value Date Recorded Sex Assigned at Female 03/04/2024 2:39 PM CDT Legal Sex Female 3:50 AM KNOTTER HAND Gender Identity Female 03/04/2024 2:39 PM CDT Sexual Orientation Not on file documented as of this encounter Plan of Treatment Upcoming Encounters Date Type Department Care Team (Late st Contact Info) Description 12/05/2024 Hospital Encounter [facility] OB Triage [address] [place] [address] [place] [address] [place] [address] documented as of this encounter Visit Diagnoses Not on filedocumented in this encounter Care Teams School Bus Driver/Custodian Relationship Specialty [place] [address] [address] PCP - General Internal Medicine 01/07/19 documented as of this encounter
--- OUTSIDE RECORDS SUMMARY | 2024-11-22 14:04 | XMS_ITS | Encounter Summary ---
Author Organization [facility] Address [address] [facility] Attn: [place] [address] Care Team Providers Care Church History Professor Name Role Phone Amado Sylvester DO Primary Care Provider [phone] Encounter Details Date Type Department Care Team (Late st Contact Info) Description 04/29/2001 Outpatient Historical Bony Kebede MD [address] [facility] [address] [place] [address] Social History Tobacco Use Types Packs/Day Years Used Date Smoking Tobacco: Never Assessed Comments Unknown Sex and Gender Information Value Date Recorded Sex Assigned at Female 03/04/2024 2:39 PM CDT Legal Sex Female 3:50 AM GARNETT MECHANIC Gender Identity Female 03/04/2024 2:39 PM CDT Sexual Orientation Not on file documented as of this encounter Plan of Treatment Upcoming Encounters Date Type Department Care Team (Late st Contact Info) Description 12/05/2024 Hospital Encounter [facility] OB Triage [address] [place] [address] [place] [address] [place] [address] [place] [address] documented as of this encounter Visit Diagnoses Not on filedocumented in this encounter Care Teams Church History Professor Relationship Specialty [place] [address] [address] PCP - General Internal Medicine 01/07/19 documented as of this encounter
--- OUTSIDE RECORDS SUMMARY | 2024-11-22 14:04 | XMS_ITS | Encounter Summary ---
Author Organization [facility] Address [address] [facility] Attn: [place] [address] Care Team Providers Care Hrbp Name Role Phone Amado Sylvester DO Primary Care Provider [phone] Encounter Details Date Type Department Care Team (Late st Contact Info) Description 07/20/2000 Outpatient Historical Vikram Correia MD [address] [place] [address] Social History Tobacco Use Types Packs/Day Years Used Date Smoking Tobacco: Never Assessed Comments Unknown Sex and Gender Information Value Date Recorded Sex Assigned at Female 03/04/2024 2:39 PM CDT Legal Sex Female 3:50 AM ENAMEL CRACKER Gender Identity Female 03/04/2024 2:39 PM CDT Sexual Orientation Not on file documented as of this encounter Plan of Treatment Upcoming Encounters Date Type Department Care Team (Late st Contact Info) Description 12/05/[address] [facility] OB Triage [address] [place] [address] [place] [address] [place] [address] documented as of this encounter Visit Diagnoses Not on filedocumented in this encounter Care Teams Hrbp Relationship Specialty [place] [address] [address] PCP - General Internal Medicine 01/07/19 documented as of this encounter
--- OUTSIDE RECORDS SUMMARY | 2024-11-22 14:04 | XMS_ITS | Encounter Summary ---
Author Organization [facility] Address [address] [facility] Attn: [place] [address] Care Team Providers Care Software Development Specialist Name Role Phone Amado Sylvester DO Primary Care Provider [phone] Encounter Details Date Type Department Care Team (Late st Contact Info) Description 07/06/2006 Outpatient Historical Vikram Correia MD [address] [place] [address] Social History Tobacco Use Types Packs/Day Years Used Date Smoking Tobacco: Never Assessed Comments Unknown Sex and Gender Information Value Date Recorded Sex Assigned at Female 03/04/2024 2:39 PM CDT Legal Sex Female 3:50 AM LABORER CONCRETE PLANT Gender Identity Female 03/04/2024 2:39 PM CDT Sexual Orientation Not on file documented as of this encounter Plan of Treatment Upcoming Encounters Date Type Department Care Team (Late st Contact Info) Description 12/05/2024 Hospital Encounter [facility] OB Triage [address] [place] [address] [place] [address] [place] [address] documented as of this encounter Visit Diagnoses Not on filedocumented in this encounter Care Teams Software Development Specialist Relationship Specialty Start [place] [address] [address] PCP - General Internal Medicine 01/07/19 documented as of this encounter
--- OUTSIDE RECORDS SUMMARY | 2024-11-22 14:04 | XMS_ITS | Encounter Summary ---
Author Organization [facility] Address [address] [facility] Attn: [place] [address] Care Team Providers Care Finance Manager Name Role Phone Amado Sylvester DO Primary Care Provider [phone] Encounter Details Date Type Department Care Team (Late st Contact Info) Description 04/28/2006 Outpatient Historical Vikram Correia MD [address] [place] [address] Social History Tobacco Use Types Packs/Day Years Used Date Smoking Tobacco: Never Assessed Comments Unknown Sex and Gender Information Value Date Recorded Sex Assigned at Female 03/04/2024 2:39 PM CDT Legal Sex Female 3:50 AM OFFICE RN Gender Identity Female 03/04/2024 2:39 PM CDT Sexual Orientation Not on file documented as of this encounter Plan of Treatment Upcoming Encounters Date Type Department Care Team (Late st Contact Info) Description 12/05/2024 Hospital Encounter [facility] OB Triage [address] [place] [address] [place] [address] [place] [address] documented as of this encounter Visit Diagnoses Not on filedocumented in this encounter Care Teams Finance Manager Relationship Specialty [place] [address] [address] PCP - General Internal Medicine 01/07/19 documented as of this encounter
--- OUTSIDE RECORDS SUMMARY | 2024-11-22 14:04 | XMS_ITS | Encounter Summary ---
Author Organization [facility] Address [address] [facility] Attn: [place] [address] Care Team Providers Care Ore Crusher Name Role Phone Amado Sylvester DO Primary Care Provider [phone] Encounter Details Date Type Department Care Team (Late st Contact Info) Description 09/10/1999 Outpatient Historical Vikram Correia MD [address] [place] [address] Social History Tobacco Use Types Packs/Day Years Used Date Smoking Tobacco: Never Assessed Comments Unknown Sex and Gender Information Value Date Recorded Sex Assigned at Female 03/04/2024 2:39 PM CDT Legal Sex Female 3:50 AM RECONCILIATION COORDINATOR Gender Identity Female 03/04/2024 2:39 PM CDT Sexual Orientation Not on file documented as of this encounter Plan of Treatment Upcoming Encounters Date Type Department Care Team (Late st Contact Info) Description 12/05/2024 Hospital Encounter [facility] OB Triage [address] [place] [address] [place] [address] [place] [address] documented as of this encounter Visit Diagnoses Not on filedocumented in this encounter Care Teams Ore Crusher Relationship Specialty [place] [address] [address] PCP - General Internal Medicine 01/07/19 documented as of this encounter
--- OUTSIDE RECORDS SUMMARY | 2024-11-22 14:04 | XMS_ITS | Encounter Summary ---
Author Organization [facility] Address [address] [facility] Attn: [place] [address] Care Team Providers Care Spareribs Trimmer Name Role Phone Amado Sylvester DO Primary Care Provider [phone] Encounter Details Date Type Department Care Team (Late st Contact Info) Description 08/26/1999 Outpatient Historical Vikram Correia MD [address] [place] [address] Social History Tobacco Use Types Packs/Day Years Used Date Smoking Tobacco: Never Assessed Comments Unknown Sex and Gender Information Value Date Recorded Sex Assigned at Female 03/04/2024 2:39 PM CDT Legal Sex Female 3:50 AM MECHANICAL MANUFACTURING TECHNICIAN Gender Identity Female 03/04/2024 2:39 PM CDT Sexual Orientation Not on file documented as of this encounter Plan of Treatment Upcoming Encounters Date Type Department Care Team (Late st Contact Info) Description 12/05/2024 Hospital Encounter [facility] OB Triage [address] [place] [address] [place] [address] [place] [address] documented as of this encounter Visit Diagnoses Not on filedocumented in this encounter Care Teams Spareribs Trimmer Relationship Specialty [place] [address] [address] PCP - General Internal Medicine 01/07/19 documented as of this encounter
--- OUTSIDE RECORDS SUMMARY | 2024-11-22 14:04 | XMS_ITS | Encounter Summary ---
Author Organization [facility] Address [address] [facility] Attn: [place] [address] Care Team Providers Care Fan Blade Truer Name Role Phone Amado Sylvester DO Primary Care Provider [phone] Encounter Details Date Type Department Care Team (Late st Contact Info) Description 10/26/2000 Outpatient Historical Vikram Correia MD [address] [place] [address] Social History Tobacco Use Types Packs/Day Years Used Date Smoking Tobacco: Never Assessed Comments Unknown Sex and Gender Information Value Date Recorded Sex Assigned at Female 03/04/2024 2:39 PM CDT Legal Sex Female 3:50 AM RADIOLOGY PHYSICIAN Gender Identity Female 03/04/2024 2:39 PM CDT Sexual Orientation Not on file documented as of this encounter Plan of Treatment Upcoming Encounters Date Type Department Care Team (Late st Contact Info) Description 12/05/2024 Hospital Encounter [facility] OB Triage [address] [place] [address] [place] [address] [place] [address] documented as of this encounter Visit Diagnoses Not on filedocumented in this encounter Care Teams Fan Blade Truer Relationship Specialty [place] [address] [address] PCP - General Internal Medicine 01/07/19 documented as of this encounter
--- OUTSIDE RECORDS SUMMARY | 2024-11-22 14:04 | XMS_ITS | Encounter Summary ---
Author Organization [facility] Address [address] [facility] Attn: [place] [address] Care Team Providers Care Personal Clothing Laundry Aide Name Role Phone Amado Sylvester DO Primary Care Provider Encounter Details Date Type Department Care Team (Late st Contact Info) Description 10/09/1998 Outpatient Historical Vikram Correia MD [address] [place] [address] Social History Tobacco Use Types Packs/Day Years Used Date Smoking Tobacco: Never Assessed Comments Unknown Sex and Gender Information Value Date Recorded Sex Assigned at Female 03/04/2024 2:39 PM CDT 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 Gender Identity Female 03/04/2024 2:39 PM CDT Sexual Orientation Not on file documented as of this encounter Plan of Treatment Upcoming Encounters Date Type Department Care Team (Late st Contact Info) Description 12/05/2024 Hospital Encounter [facility] OB Triage [address] [place] [address] [place] [address] [place] [address] documented as of this encounter Visit Diagnoses Not on filedocumented in this encounter Care Teams Personal Clothing Laundry Aide Relationship Specialty [place] [address] [address] PCP - General Internal Medicine 01/07/19 documented as of this encounter
--- OUTSIDE RECORDS SUMMARY | 2024-11-22 14:04 | XMS_ITS | Encounter Summary ---
Author Organization [facility] Address [address] [facility] Attn: [place] [address] Care Team Providers Care Engineering Research Manager Name Role Phone Amado Sylvester DO Primary Care Provider [phone] Encounter Details Date Type Department Care Team (Late st Contact Info) Description 04/09/2000 Outpatient Historical Claire Pittman MD [address] [place] [address] Social History Tobacco Use Types Packs/Day Years Used Date Smoking Tobacco: Never Assessed Comments Unknown Sex and Gender Information Value Date Recorded Sex Assigned at Female 03/04/2024 2:39 PM CDT 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 Gender Identity Female 03/04/2024 2:39 PM CDT Sexual Orientation Not on file documented as of this encounter Plan of Treatment Upcoming Encounters Date Type Department Care Team (Late st Contact Info) Description 12/05/2024 Hospital Encounter [facility] OB Triage [address] [place] [address] [place] [address] [place] [address] documented as of this encounter Visit Diagnoses Not on filedocumented in this encounter Care Teams Engineering Research Manager Relationship Specialty [place] [address] [address] PCP - General Internal Medicine 01/07/19 documented as of this encounter
--- OUTSIDE RECORDS SUMMARY | 2024-11-22 14:04 | XMS_ITS | Encounter Summary ---
Author Organization [facility] Address 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 Gender Identity Female 03/04/2024 2:39 PM CDT Sexual Orientation Not on file documented as of this encounter Plan of Treatment Upcoming Encounters Date Type Department Care Team (Late st Contact Info) Description 12/05/2024 Hospital Encounter [facility] OB Triage [address] [place] [address] [place] [address] [place] [address] documented as of this encounter Visit Diagnoses Diagnosis Cardiac dysrhythmia, unspecified- Primary documented in this encounter Care Teams Java Mobile Developer Relationship Specialty [place] [address] [address] PCP - General Internal Medicine 01/07/19 documented as of this encounter
--- OUTSIDE RECORDS SUMMARY | 2024-11-22 14:04 | XMS_ITS | Encounter Summary ---
Author Organization [facility] Address [address] 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 Gender Identity Female 03/04/2024 2:39 PM CDT Sexual Orientation Not on file documented as of this encounter Plan of Treatment Upcoming Encounters Date Type Department Care Team (Late st Contact Info) Description 12/05/2024 Hospital Encounter [facility] OB Triage [address] [place] [address] [place] [address] [place] [address] documented as of this encounter Visit Diagnoses Not on filedocumented in this encounter Care Teams Printer Apprentice Relationship Specialty [place] [address] [address] PCP - General Internal Medicine 01/07/19 documented as of this encounter
--- OUTSIDE RECORDS SUMMARY | 2024-11-22 14:04 | XMS_ITS | Encounter Summary ---
Author Organization [facility] Address [address] [facility] Attn: [place] [address] Care Team Providers Care Lion Hunter Name Role Phone Amado Sylvester DO Primary Care Provider [phone] Encounter Details Date Type Department Care Team (Late st Contact Info) Description 01/16/2004 Outpatient Historical Bony Kebede MD [address] [facility] [address] [place] [address] Social History Tobacco Use Types Packs/Day Years Used Date Smoking Tobacco: Never Assessed Comments Unknown Sex and Gender Information Value Date Recorded Sex Assigned at Female 03/04/2024 2:39 PM CDT 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 Gender Identity Female 03/04/2024 2:39 PM CDT Sexual Orientation Not on file documented as of this encounter Plan of Treatment Upcoming Encounters Date Type Department Care Team (Late st Contact Info) Description 12/05/2024 Hospital Encounter [facility] OB Triage [address] [place] [address] [place] [address] [place] [address] documented as of this encounter Visit Diagnoses Not on filedocumented in this encounter Care Teams Lion Hunter Relationship Specialty [place] [address] [address] PCP - General Internal Medicine 01/07/19 documented as of this encounter
--- OUTSIDE RECORDS SUMMARY | 2024-11-22 14:04 | XMS_ITS | Encounter Summary ---
Author Organization [facility] Address [address] [facility] Attn: [place] [address] Care Team Providers Care Curtain Stitcher Name Role Phone Amado Sylvester DO Primary Care Provider [phone] Encounter Details Date Type Department Care Team (Late st Contact Info) Description 10/12/2004 Outpatient Historical Bony Kebede MD [address] [facility] [address] [place] [address] Social History Tobacco Use Types Packs/Day Years Used Date Smoking Tobacco: Never Assessed Comments Unknown Sex and Gender Information Value Date Recorded Sex Assigned at Female 03/04/2024 2:39 PM CDT Legal Sex Female 3:50 AM PUMP AND BLOWER OPERATOR Gender Identity Female 03/04/2024 2:39 PM CDT Sexual Orientation Not on file documented as of this encounter Plan of Treatment Upcoming Encounters Date Type Department Care Team (Late st Contact Info) Description 12/05/2024 Hospital Encounter [facility] OB Triage [address] [place] [address] [place] [address] [place] [address] documented as of this encounter Visit Diagnoses Not on filedocumented in this encounter Care Teams Curtain Stitcher Relationship Specialty [place] [address] [address] PCP - General Internal Medicine 01/07/19 documented as of this encounter
--- OUTSIDE RECORDS SUMMARY | 2024-11-22 14:04 | XMS_ITS | Encounter Summary ---
Author Organization [facility] Address [address] [place] [address] Care Team Providers Care Fisher Quahog Name Role Phone SylvesterAmado Mt PALM Primary Care Provider [phone] Encounter Details Date Type Department Care Team (Late st Contact Info) Description 10/15/2004 Outpatient Historical [facility] (Peds [facility]) [address] 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 Gender Identity Female 03/04/2024 2:39 PM CDT Sexual Orientation Not on file documented as of this encounter Plan of Treatment Upcoming Encounters Date Type Department Care Team (Late st Contact Info) Description 12/05/2024 Hospital Encounter [facility] OB Triage [address] [place] [address] [place] [address] [place] [address] documented as of this encounter Visit Diagnoses Not on filedocumented in this encounter Care Teams Fisher Quahog Relationship Specialty [place] [address] [address] PCP - General Internal Medicine 01/07/19 documented as of this encounter
--- OUTSIDE RECORDS SUMMARY | 2024-11-22 14:04 | XMS_ITS | Encounter Summary ---
Author Organization [facility] Address [address] [facility] Attn: [place] [address] Care Team Providers Care Sailmaker Name Role Phone Amado Sylvester DO Primary Care Provider [phone] Encounter Details Date Type Department Care Team (Late st Contact Info) Description 09/03/1998 Outpatient Historical Vikram Correia MD [address] [place] [address] Social History Tobacco Use Types Packs/Day Years Used Date Smoking Tobacco: Never Assessed Comments Unknown Sex and Gender Information Value Date Recorded Sex Assigned at Female 03/04/2024 2:39 PM CDT Legal Sex Female 3:50 AM NURSE CARE MANAGER Gender Identity Female 03/04/2024 2:39 PM CDT Sexual Orientation Not on file documented as of this encounter Plan of Treatment Upcoming Encounters Date Type Department Care Team (Late st Contact Info) Description 12/05/2024 Hospital Encounter [facility] OB Triage [address] [place] [address] [place] [address] [place] [address] documented as of this encounter Visit Diagnoses Not on filedocumented in this encounter Care Teams Sailmaker Relationship Specialty [place] [address] [address] PCP - General Internal Medicine 01/07/19 documented as of this encounter
--- OUTSIDE RECORDS SUMMARY | 2024-11-22 14:04 | XMS_ITS | Encounter Summary ---
Author Organization [facility] Address [address] [facility] Attn: [place] [address] Care Team Providers Care Cartographic Drafter Name Role Phone Amado Sylvester DO Primary Care Provider [phone] Encounter Details Date Type Department Care Team (Late st Contact Info) Description 09/07/2002 Outpatient Historical Vikram Correia MD [address] [place] [address] Social History Tobacco Use Types Packs/Day Years Used Date Smoking Tobacco: Never Assessed Comments Unknown Sex and Gender Information Value Date Recorded Sex Assigned at Female 03/04/2024 2:39 PM CDT 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 Gender Identity Female 03/04/2024 2:39 PM CDT Sexual Orientation Not on file documented as of this encounter Plan of Treatment Upcoming Encounters Date Type Department Care Team (Late st Contact Info) Description 12/05/2024 Hospital Encounter [facility] OB Triage [address] [place] [address] [place] [address] [place] [address] documented as of this encounter Visit Diagnoses Not on filedocumented in this encounter Care Teams Cartographic Drafter Relationship Specialty [place] [address] [address] PCP - General Internal Medicine 01/07/19 documented as of this encounter
--- OUTSIDE RECORDS SUMMARY | 2024-11-22 14:04 | XMS_ITS | Encounter Summary ---
Author Organization [facility] Address [address] [place] [address] Care Team Providers Care Tipple Operator Name Role Phone Amado Sylvester DO Primary Care Provider [phone] Encounter Details Date Type Department Care Team (Late Contact Info) Description 04/05/2006 Outpatient Historical [facility] [place] [address] [place], [place] [id number] Er, Authorized P NO ADDRESS ON FILE Abdominal Pain, Unspecified Site (Primary Dx) Social History Tobacco Use Types Packs/Day Years Used Date Smoking Tobacco: Never Assessed Comments Unknown Sex and Gender Information Value Date Recorded Sex Assigned at Female 03/04/2024 2:39 PM CDT Legal Sex Female 3:50 AM CONFORMAL PAD FORMER Gender Identity Female 03/04/2024 2:39 PM CDT Sexual Orientation Not on file documented as of this encounter Plan of Treatment Upcoming Encounters Date Type Department Care Team (Late st Contact Info) Description 12/05/2024 Hospital Encounter [facility] OB Triage [address] [place] [address] [place] [address] [place] [address] documented as of this encounter Procedures Procedure Name Priority Date/Time Associated Diagnosis Comments URINALYSIS W/REFLEX MICROSCOPIC Routine 04/05/2006 4:05 PM CDT documented in this encounter Results * (ABNORMAL) URINALYSIS (04/05/2006 4:05 PM CDT) COLOR UA Yellow INTERFACE SYSTEM CLARITY UA Clear Clear INTERFACE SYSTEM SPECIFIC GRAVITY UA 1.025 1.001 - 1.035 INTERFACE SYSTEM PH UA 8.0 5.0 - 8.0 INTERFACE SYSTEM LEUKOCYTE ESTERASE UA 1+(A) Negative INTERFACE SYSTEM NITRITE UA Negative Negative INTERFACE SYSTEM PROTEIN UA Trace(A) Negative INTERFACE SYSTEM GLUCOSE UA Negative Negative INTERFACE SYSTEM KETONES UA Negative Negative INTERFACE SYSTEM UROBILINOGEN UA <1 <=1 mg/dL INTE RFACE SYSTEM BILIRUBIN UA Negative Negative INTERFA CE SYSTEM BLOOD UA Negative Negative INTERFACE SYSTEM WBC UA 7(H) 0 - 5 /HPF INTERFACE SYSTEM RBC UA 1 0 - 4 /HPF INTERFACE SYSTEM EPITHELIAL CELLS, URINE 2-5 /HPF INTERFACE SYSTEM 04/05/2006 4:05 PM CDT us Historical Provider URINE ORDERABLES Final Resul t INTERFACE SYSTEM Refer to clinic/hospital department documented in this encounter Visit Diagnoses Diagnosis Abdominal pain, unspecified site- Primary documented in this encounter Care Teams Tipple Operator Relationship Specialty [place] [address] [facility] [address] [facility] [address] PCP - General Internal Medicine 01/07/19 documented as of this encounter
--- OUTSIDE RECORDS SUMMARY | 2024-11-22 14:04 | XMS_ITS | Encounter Summary ---
Author Organization [facility] Address [address] [facility] Attn: [place] [address] Care Team Providers Care Local Company Flatbed Truck Driver Name Role Phone Amado Sylvester DO Primary Care Provider [phone] Encounter Details Date Type Department Care Team (Late st Contact Info) Description 09/03/1998 Outpatient Historical Vikram Correia MD [address] [place] [address] Social History Tobacco Use Types Packs/Day Years Used Date Smoking Tobacco: Never Assessed Comments Unknown Sex and Gender Information Value Date Recorded Sex Assigned at Female 03/04/2024 2:39 PM CDT 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 Gender Identity Female 03/04/2024 2:39 PM CDT Sexual Orientation Not on file documented as of this encounter Plan of Treatment Upcoming Encounters Date Type Department Care Team (Late st Contact Info) Description 12/05/2024 Hospital Encounter [facility] OB Triage [address] [place] [address] [place] [address] [place] [address] documented as of this encounter Visit Diagnoses Not on filedocumented in this encounter Care Teams Local Company Flatbed Truck Driver Relationship Specialty Start [place] [address] [address] PCP - General Internal Medicine 01/07/19 documented as of this encounter
--- OUTSIDE RECORDS SUMMARY | 2024-11-22 14:04 | XMS_ITS | Encounter Summary ---
Author Organization [facility] Address [address] [facility] [address] Attn: [place] [address] Care Team Providers Care Contracts Manager Name Role Phone Amado Sylvester DO Primary Care Provider [phone] Encounter Details Date Type Department Care Team (Late st Contact Info) Description 03/01/2002 Outpatient Historical Vikram Correia MD [address] [place] [address] Social History Tobacco Use Types Packs/Day Years Used Date Smoking Tobacco: Never Assessed Comments Unknown Sex and Gender Information Value Date Recorded Sex Assigned at Female 03/04/2024 2:39 PM CDT 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 Gender Identity Female 03/04/2024 2:39 PM CDT Sexual Orientation Not on file documented as of this encounter Plan of Treatment Upcoming Encounters Date Type Department Care Team (Late st Contact Info) Description 12/05/2024 Hospital Encounter [facility] OB Triage [address] [place] [address] [place] [address] [place] [address] documented as of this encounter Visit Diagnoses Not on filedocumented in this encounter Care Teams Contracts Manager Relationship Specialty [place] [address] [address] PCP - General Internal Medicine 01/07/19 documented as of this encounter
--- OUTSIDE RECORDS SUMMARY | 2024-11-22 14:05 | XMS_ITS ---
Author Organization Unknown Address [address] [place], [place] [id number] Phone Care Team Providers Care Casework Supervisor Name Role Phone LEANDRO ADAM Attending Unavailable OTHER PHYSICIAN Primary Unavailable Social History Type Status Start Date End Date Code Code Syst em Smoking History Unknown if ever smoked [address] Sex Female Vital Signs Vital Sign Value Unit [place] Value [place] Unit Date/Time Recent/Initial? Code Code System Body Mass Index 26.30 kg/m2 04/21/2023 09:34 Initial 21615 -5 [facility] Systolic Blood Pressure 118 mm[Hg] 04/21/2023 09:34 Initial 8480- 6 [facility] Diastolic Blood Pressure 82 mm[Hg] 04/21/2023 09:34 Initial 8462- 4 [facility] Body Surface Area 1.94 m2 04/21/2023 09:34 Initial 3140- 1 [facility] Height 172.720 0 cm 68.00 in 04/21/2023 09:34 Initial 8302- 2 [facility] O2 Saturation 98 % 2022 09:34 Initial 97544 -5 [facility] Pulse 86.0 /min 04/21/2023 09:34 Initial 8867- 4 [facility] Temperature 36.5 Alondra 97.7 F 04/21/20 09:34 Initial 8310- 5 [facility] Weight 78.47 kg 173.00 lbs 04/21/2023 09:34 Initial 92934 -7 [facility] Medications Medication Start Date End Date Route Frequency Dose Code Code System Medication Instructions Home Meds metroNIDAZOLE 500MG Oral Tablet 04/21/2023 Unknown By mouth Daily 1 TABLET 825322 RxNorm 1 TABLET By mouth TWICE Daily With food; DO NOT CONSUME ALCOHOL WITH THIS MEDICATION or 48hrs after last dose Hospital Discharge Instructions Should you have any questions prior to discharge, please contact a member of your healthcare team. If you have left the hospital and have any questions, please contact your primary care physician. Reason For Referral No Data Found Allergies and Adverse Reactions Allergy Substance Reaction Severity Start Date Concern Status Code Code System PCN (penicillin) Rash (SNOMED-CT: 907768807) Active 4492209 SNOMED-CT GLUTEN NAUSEA, ABD PAIN (SNOMED-CT: null) Active 60381243 SNOMED-CT Plan of Treatment Future Order Description Future Order Date Futu re Order Loinc: BACTERIAL VAGINOSIS RAPID TEST 04/21/2023 LOINC: 6410-5 CULTURE YEAST, WITH IDENTIFICATION 04/21/2023 LOINC: 18001-2 Encounters Encounter Diagnosis Start Date Code Code Sys tem Acute vaginitis 04/21/2023 78172535 SNOMED-CT Personal Care Team Section Performer Name Performer Role Active Date Inactive Da te Progress Notes [facility] 04/21/2023 10:50 Admission Date/Time: 04/21/2023 09:18 Convenient Care Visit Chief Complaint: FEMALE ISSUES HPI: Presents ambulatory to clinic with complaint of white vaginal discharge with a fishy odor and vaginal irritation. Was seen at her [facility] office in [facility] on 02/26/23 and diagnosed with BV and treated with Oral Flagyl for 1 week. Reports that she had good improvement but it did not feel like it completely resolved. Had discussed this with the high school chemistry [facility] and the prescribed her Flagyl in a gel form. Did seem like it resolved but now symptoms have returned over the past week. during her January visit she was tested for gonorrhea, chlamydia and trich which were all negative. Has been with 1 partner over the past year but stated he's not my boyfriend . believes that she is his only partner. Does not use condoms but is declining STD testing at this time. Last sexual intercourse was 1 month ago. Denies any vaginal rash/lesions, dysruria, polyuria, urgency or dyspareunia. Denies any fever, pelvic or abdominal pain, or N/V/D. PO intake is normal. Last menstrual period 2 weeks ago and was normal. Denies any significant past medical history. Denies tobacco use. EXAM: General: A&O x3. NAD. Healthy appearance. Rates pain 0/10 at present Lungs: CTA. Respirations with ease Cardiac: heart regular rhythm, rate , GI/: BS present, Abd soft and nontender. CVA tenderness not noted. declined pelvic exam at this time. Patient is willing to self collect vaginal discharge. Skin: Warm, dry, normal color. No rash. ASSESSMENT/DIAGNOSIS: 1. Acute recurrent vaginosis, mild Flagyl X 10 days 2. High-risk sexual behavior highly encouraged to retest for STDs as the initial test could have been a false negative. 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 Differential diagnosis: Bacterial vaginosis, vaginal yeast infection, STD PLAN: Diagnostics: BV testing, yeast culture Medications: Flagyl. Instructions: Take/use medications as directed. No sexual contact and no use of tampons until all treatment is completed and symptoms have resolved. Avoid vaginal douching. Follow up: PCP or CC in 2 days if not improving, otherwise follow-up in 1-2 weeks with [facility]. ER if any symptoms become severe or develops abdominal pain or fever. *This plan has been reviewed with the patient Questions and concerns were addressed. Patient verbalized understanding of the treatment plan and need for follow up. This examination was transcribed using the [employer] voice recognition system without human ticket puller. In an effort to expedite patient care, this report has not been adjusted for typographical, or medical or syntax by a trained mobile paramedical examiner. Allergy Table Allergen Type Reaction PCN (penicillin) medication Rash GLUTEN food NAUSEA, ABD PAIN Vital Signs: This Visit HtWt Date/Time BP (mm/Hg) BP Position/Site Heart Rate Resp Temp (F) SPO2% Pain Score Height (in) Weight (lbs/ozs) BMI Head Cir (cm) 04/21/2023 09:34 118/82 Sitting/Right Arm 86 97.7 Tympanic 98 % 0 68 in 173 lbs 26.3 Lab Results: This Visit: No Labs Available Meds Given This Visit: Ordered & Completed Meds Table: No Current Medications Available Discharge Med List: Discharge Medications Medication Special Instructions Start Date Prescribing MD metroNIDAZOLE 500MG Oral Tablet 1 TABLET By mouth TWICE Daily With food; DO NOT CONSUME ALCOHOL WITH THIS MEDICATION or 48hrs after last dose 04/21/2023 LEANDRO MEDINA
[2024-11-23 13:34] LABS: RPR Screen NON-REACTIVE (NON-REACTIVE)
== END 2024-11-22 11:58 | disposition home or self-care (01) ==
LOC: ANHLAB 11:59
PROVIDERS: Visit Provider Obstetrics & Gynecology
DX: Z34.90 Encounter for supervision of normal pregnancy, unspecified, unspecified trimester (principal); Z3A.00 Weeks of gestation of pregnancy not specified
CPT/HCPCS: 36415; 85027; 86592; 86703; G0432

== ENCOUNTER 2024-12-05 14:09 | Inpatient (IN) | payer MEDICAID, SELFPAY ==
[2024-12-05 14:36] VITALS: TEMP 36.9
[2024-12-05 16:12] LABS: Basophils Absolute Auto 0.1 K/mm3 (0.0-0.1); Basophils Percent Auto 0.4 % (0.2-1.2); Eosinophils Absolute Auto 0.1 K/mm3 (0-0.3); Hematocrit 37.4 % (37.0-47.0); Hemoglobin 12.3 g/dL (12.0-15.0); Immature Granulocyte Absolute 0.05 K/mm3 (0.00-0.031); Immature Granulocyte Percent A 0.4 % (0-0.5); Lymphocytes Percent Auto 19.4 % (18.3-44.2); Mean Corpuscular HGB Conc 32.9 g/dl (32-36); Mean Corpuscular Hemoglobin 28.8 pg (26-34); Mean Corpuscular Volume 87.6 fl (80-100); Monocytes Absolute Auto 0.5 K/mm3 (0.1-0.6); Monocytes Percent Auto 4.6 % (2.6-8.5); Neutrophils Absolute Auto 8.8 K/mm3 (1.3-6.7); Neutrophils Percent Auto 74.2 % (45.5-73.1); Platelet Count Result 278 k/mm3 (150-375); Red Blood Count 4.27 M/mm3 (4.2-5.4); Red Cell Distribution Width 15.3 % (11.5-14.5); White Blood Count 11.9 K/mm3 (4.5-10.0)
[2024-12-05] MEDS: miSOPROStol 25 MCG TABLET 50 MCG BUCCAL (16:21)
[2024-12-05 16:26] VITALS: BMI 34.3
--- NOTE | 2024-12-05 16:26 | LDADM ---
This patient, Mai Jordan, was admitted to Labor/Delivery/Recovery [facility] on 12/05/24 at 14:09. Plans for labor, pain management and were discussed with patient. Patient/family oriented to hospital policies and general routines including ID bracelet, bed and alarms, visiting hours, pain management, procedures, bathroom and other care routines, personal items, smoking policy, room service/diet and guest tray routines, security routines, and visiting hours. Patient/Family are encouraged to report perceived risks to care and to ask questions if they do not understand what they are told or what they should do. See OBIX for further documentation.
[2024-12-05 16:49] LABS: Syphilis IgG/IgM Antibody Negative (Negative)
[2024-12-05 17:00] VITALS: BP 121/86; PULSE 93
[2024-12-05 17:03] LABS: HIV 1/2 Ab P24 Ag Result Negative (Negative)
--- OUTSIDE RECORDS SUMMARY | 2024-12-05 17:37 | XMS_ITS | Encounter Summary ---
Author Organization [facility] Address [address] [place] [address] Care Team Providers Care Patient Financial Advocate Name Role Phone Amado Sylvester Primary Care Provider [phone] Encounter Details Date Type Department Care Team (Late st Contact Info) Description 04/05/2006 Outpatient Historical [facility] [place] [address] [place] [address] Er, Authorized P NO ADDRESS ON FILE Abdominal Pain, Unspecified Site (Primary Dx) Social History Tobacco Use Types Packs/Day Years Used Date Smoking Tobacco: Never Assessed Comments Unknown Sex and Gender Information Value Date Recorded Sex Assigned at Female 03/04/2024 2:39 PM CDT Legal Sex Female 3:50 AM FOLDER SEAMER Gender Identity Female 03/04/2024 2:39 PM CDT Sexual Orientation Not on file documented as of this encounter Plan of Treatment Not on file documented as of this encounter Procedures Procedure [...] Primary documented in this encounter Care Teams Patient Financial Advocate Relationship Specialty [place] [address] [phone] PCP - General Internal Medicine 01/07/19 documented as of this encounter
--- OUTSIDE RECORDS SUMMARY | 2024-12-05 17:37 | XMS_ITS | Encounter Summary ---
Author Organization [facility] Address [address] [facility] Attn: Epic [place] [address] Care Team Providers Care Social Media Assistant Name Role Phone Amado Sylvester DO Primary Care Provider [phone] Encounter Details Date Type Department Care Team (Late st Contact Info) Description 01/16/2004 Outpatient Historical Bony Kebede MD [address] [facility] [address] [place] [address] Social History Tobacco Use Types Packs/Day Years Used Date Smoking Tobacco: Never Assessed Comments Unknown Sex and Gender Information Value Date Recorded Sex Assigned at Female 03/04/2024 2:39 PM CDT Legal Sex Female 3:50 AM PRIMARY MILL ROLLER Gender Identity Female 03/04/2024 2:39 PM CDT Sexual Orientation Not on file documented as of this encounter Plan of Treatment Not on file documented as of this encounter Visit Diagnoses Not on filedocumented in this encounter Care Teams Social Media Assistant Relationship Specialty [place] [address] [facility] [address] [facility] [phone] PCP - General Internal Medicine 01/07/19 documented as of this encounter
--- OUTSIDE RECORDS SUMMARY | 2024-12-05 17:37 | XMS_ITS | Encounter Summary ---
Author Organization [facility] Address [address] [facility] Attn: Epic [place] [address] Care Team Providers Care Calculus Professor Name Role Phone Amado Sylvester DO Primary Care Provider [phone] Encounter Details Date Type Department Care Team (Late st Contact Info) Description 07/06/2006 Outpatient Historical Vikram Correia MD [address] [place] [address] Social History Tobacco Use Types Packs/Day Years Used Date Smoking Tobacco: Never Assessed Comments Unknown Sex and Gender Information Value Date Recorded Sex Assigned at Female 03/04/2024 2:39 PM CDT Legal Sex Female 3:50 AM CIVIL PROJECT ENGINEER Gender Identity Female 03/04/2024 2:39 PM CDT Sexual Orientation Not on file documented as of this encounter Plan of Treatment Not on file documented as of this encounter Visit Diagnoses Not on filedocumented in this encounter Care Teams Calculus Professor Relationship Specialty [place] [address] [facility] [address] [facility] [phone] PCP - General Internal Medicine 01/07/19 documented as of this encounter
--- OUTSIDE RECORDS SUMMARY | 2024-12-05 17:37 | XMS_ITS | Encounter Summary ---
Author Organization [facility] Address [address] [facility] Attn: Epic [place] [address] Care Team Providers Care Sheet Metal Assembler Name Role Phone Amado Sylvester DO Primary Care Provider [phone] Encounter Details Date Type Department Care Team (Late st Contact Info) Description 09/07/2002 Outpatient Historical Vikram Correia MD [address] [place] [address] Social History Tobacco Use Types Packs/Day Years Used Date Smoking Tobacco: Never Assessed Comments Unknown Sex and Gender Information Value Date Recorded Sex Assigned at Female 03/04/2024 2:39 PM CDT Legal Sex Female 3:50 AM HOUSING COUNSELOR Gender Identity Female 03/04/2024 2:39 PM CDT Sexual Orientation Not on file documented as of this encounter Plan of Treatment Not on file documented as of this encounter Visit Diagnoses Not on filedocumented in this encounter Care Teams Sheet Metal Assembler Relationship Specialty [place] [address] [facility] [address] [facility] [address] PCP - General Internal Medicine 01/07/19 documented as of this encounter
--- OUTSIDE RECORDS SUMMARY | 2024-12-05 17:37 | XMS_ITS | Encounter Summary ---
Author Organization [facility] Address [address] [facility] Attn: Epic [place] [address] Care Team Providers Care Medical Biller Coder Name Role Phone Amado Sylvester DO Primary Care Provider Encounter Details Date Type Department Care Team (Late st Contact Info) Description 04/28/2006 Outpatient Historical Vikram Correia MD [address] [place] [address] Social History Tobacco Use Types Packs/Day Years Used Date Smoking Tobacco: Never Assessed Comments Unknown Sex and Gender Information Value Date Recorded Sex Assigned at Female 03/04/2024 2:39 PM CDT Legal Sex Female 3:50 AM CARD PUNCHING MACHINE OPERATOR Gender Identity Female 03/04/2024 2:39 PM CDT Sexual Orientation Not on file documented as of this encounter Plan of Treatment Not on file documented as of this encounter Visit Diagnoses Not on filedocumented in this encounter Care Teams Medical Biller Coder Relationship Specialty [place] [address] [facility] [address] [facility] [phone] PCP - General Internal Medicine 01/07/19 documented as of this encounter
--- OUTSIDE RECORDS SUMMARY | 2024-12-05 17:37 | XMS_ITS | Encounter Summary ---
Author Organization [facility] Address [address] [facility] Attn: Epic [place] [address] Care Team Providers Care Microbiology Professor Name Role Phone Amado Sylvester DO Primary Care Provider [phone] Encounter Details Date Type Department Care Team (Late st Contact Info) Description 04/08/2006 Outpatient Historical Virkam Correia MD [address] [place] [address] Social History Tobacco Use Types Packs/Day Years Used Date Smoking Tobacco: Never Assessed Comments Unknown Sex and Gender Information Value Date Recorded Sex Assigned at Female 03/04/2024 2:39 PM CDT Legal Sex Female 3:50 AM TELEVISION PICTURE TUBE REBUILDER Gender Identity Female 03/04/2024 2:39 PM CDT Sexual Orientation Not on file documented as of this encounter Plan of Treatment Not on file documented as of this encounter Visit Diagnoses Not on filedocumented in this encounter Care Teams Microbiology Professor Relationship Specialty [place] [address] [facility] [address] [facility] [address] PCP - General Internal Medicine 01/07/19 documented as of this encounter
--- OUTSIDE RECORDS SUMMARY | 2024-12-05 17:37 | XMS_ITS | Encounter Summary ---
Author Organization [facility] Address [address] [facility] Attn: [place] [address] Care Team Providers Care Eyewear Manufacturing Supervisor Name Role Phone Amado Sylvester DO Primary Care Provider [phone] Encounter Details Date Type Department Care Team (Late st Contact Info) Description 07/06/2006 Outpatient Historical Vikram Correia MD [address] [place] [address] Abdominal Pain, Right Lower Quadrant (Primary Dx) Social History Tobacco Use Types Packs/Day Years Used Date Smoking Tobacco: Never Assessed Comments Unknown Sex and Gender Information Value Date Recorded Sex Assigned at Female 03/04/2024 2:39 PM CDT Legal Sex Female 3:50 AM DESIGN TECHNOLOGY PROFESSOR Gender Identity Female 03/04/2024 2:39 PM CDT Sexual Orientation Not on file documented as of this encounter Plan of Treatment Not on file documented as of this encounter Procedures Procedure Name Priority Date/Time Associated Diagnosis Comments CELIAC DISEASE ANTIBODIES Routine 07/06/2006 11:05 AM DESIGN TECHNOLOGY PROFESSOR CBC WITH DIFFERENTIAL Routine 07/06/2006 11:05 AM DESIGN TECHNOLOGY PROFESSOR CBC WITH DIFFERENTIAL Routine 07/06/2006 11:05 AM DESIGN TECHNOLOGY PROFESSOR SEDIMENTATION RATE Routine 07/06/2006 11 :05 AM DESIGN TECHNOLOGY PROFESSOR C-REACTIVE PROTEIN Routine 07/06/2006 11 :05 AM DESIGN TECHNOLOGY PROFESSOR LIPASE Routine 07/06/2006 11:05 AM DESIGN TECHNOLOGY PROFESSOR AMYLASE Routine 07/06/2006 11:05 AM DESIGN TECHNOLOGY PROFESSOR COMPREHENSIVE METABOLIC PANEL Routine 07/06/2006 11:05 AM DESIGN TECHNOLOGY PROFESSOR documented in this encounter Results * CELIAC DISEASE ANTIBODIES (07/06/2006 11:05 AM DESIGN TECHNOLOGY PROFESSOR) TRANSGLUTAMINASE IGA AB <3 <5 U/mL INTERFACE SYSTEM Comment: Reference range: <5 U/mL Negative 5-8 U/mL Equivocal >8 U/mL Positive Lab test performed by: [employer] [address] NITO BOSS MD GLIADIN IGA AB <3 <11 U/mL INTER FACE SYSTEM Comment: Reference Range: <11 U/mL Negative 11-17 U/mL Equivocal >17 U/mL Positive Lab test performed by: [employer] [address] NITO BOSS MD IGA 71 41 - 368 mg/dL INTERFACE SYSTEM Comment: Lab test performed by: [facility] [address] NITO BOSS MD 07/06/2006 11:0 5 AM DESIGN TECHNOLOGY PROFESSOR J Shravan Correia MD CHEMISTRY ORDERABLES Final Res ult INTERFACE SYSTEM Refer to clinic/hospital department * CBC WITH DIFFERENTIAL (07/06/2006 11:05 AM DESIGN TECHNOLOGY PROFESSOR) NEUTROPHILS 58 36 - 74 % INTERFAC [...] K/uL INTERFACE SYSTEM 07/06/2006 11:0 5 AM DESIGN TECHNOLOGY PROFESSOR us Vikram Correia MD HEMATOLOGY ORDERABLES Final Re sult Performing Organization Address City/[facility] Co de Phone Number INTERFACE SYSTEM Refer to clinic/hospital department * (ABNORMAL) CBC WITH DIFFERENTIAL (07/06/2006 11:05 AM DESIGN TECHNOLOGY PROFESSOR) WBC 8.0 4.5 - 13.5 K/uL INTERFACE [...] fL INTERFACE SYSTEM 07/06/2006 11:0 5 AM DESIGN TECHNOLOGY PROFESSOR us Vikram Correia MD HEMATOLOGY ORDERABLES Final Re sult Performing Organization Address [facility] Co de Phone Number INTERFACE SYSTEM Refer to clinic/hospital department * LIPASE (07/06/2006 11:05 AM DESIGN TECHNOLOGY PROFESSOR) LIPASE 30 13 - 60 U/L INTERFAC E SYSTEM 07/06/2006 11:0 5 AM DESIGN TECHNOLOGY PROFESSOR us Vikram Correia MD CHEMISTRY ORDERABLES Final Res ult Performing Organization Address City/[facility] Co de Phone Number INTERFACE SYSTEM Refer to clinic/hospital department * SEDIMENTATION RATE (07/06/2006 11:05 AM DESIGN TECHNOLOGY PROFESSOR) ESR (SEDIMENTATION RATE) 10 0 - 20 mm/hr INTERFACE SYSTEM 07/06/2006 11:0 5 AM DESIGN TECHNOLOGY PROFESSOR us Vikram Correia MD HEMATOLOGY ORDERABLES Final Re sult Performing Organization Address [facility] Phone Number INTERFACE SYSTEM Refer to clinic/hospital department * C-REACTIVE PROTEIN (07/06/2006 11:05 AM DESIGN TECHNOLOGY PROFESSOR) CRP <0.2 0.0 - 0.8 mg/dL INTERFACE SYSTEM 07/06/2006 11:0 5 AM DESIGN TECHNOLOGY PROFESSOR us Vikram Correia MD CHEMISTRY ORDERABLES Final Res ult Performing Organization Address [facility] Phone Number INTERFACE SYSTEM Refer to clinic/hospital department * AMYLASE (07/06/2006 11:05 AM DESIGN TECHNOLOGY PROFESSOR) AMYLASE 63 28 - 100 U/L INTERFACE SYSTEM 07/06/2006 11:0 5 AM DESIGN TECHNOLOGY PROFESSOR us Vikram Correia MD CHEMISTRY ORDERABLES Final Res ult Performing Organization Address [facility] Phone Number INTERFACE SYSTEM Refer to clinic/hospital department * (ABNORMAL) COMPREHENSIVE METABOLIC PANEL (07/06/2006 11:05 AM DESIGN TECHNOLOGY PROFESSOR) GLUCOSE 89 60 - 110 mg/dL INTERFACE [...] mmol/L INTERFACE SYSTEM 07/06/2006 11:0 5 AM DESIGN TECHNOLOGY PROFESSOR us J Shravan Correia MD CHEMISTRY ORDERABLES Final Res ult INTERFACE SYSTEM Refer to clinic/hospital department documented in this encounter Visit Diagnoses Diagnosis Abdominal pain, right lower quadrant- Primary documented in this encounter Care Teams Eyewear Manufacturing Supervisor Relationship Specialty [place] [address] [facility] 45 [facility] [phone] PCP - General Internal Medicine 01/07/19 documented as of this encounter
--- OUTSIDE RECORDS SUMMARY | 2024-12-05 17:37 | XMS_ITS | Encounter Summary ---
Author Organization [facility] Address [address] [facility] Attn: [place] [address] Care Team Providers Care Drafter Castings Name Role Phone Amado Sylvester DO Primary Care Provider [phone] Encounter Details Date Type Department Care Team (Late st Contact Info) Description 03/07/2004 Outpatient Historical Vikram Correia MD [address] [place] [address] Social History Tobacco Use Types Packs/Day Years Used Date Smoking Tobacco: Never Assessed Comments Unknown Sex and Gender Information Value Date Recorded Sex Assigned at Female 03/04/2024 2:39 PM CDT Legal Sex Female 3:50 AM PAYMENT ANALYST Gender Identity Female 03/04/2024 2:39 PM CDT Sexual Orientation Not on file documented as of this encounter Plan of Treatment Not on file documented as of this encounter Visit Diagnoses Not on filedocumented in this encounter Care Teams Drafter Castings Relationship Specialty Start [place] [address] [facility] [address] [facility] [phone] PCP - General Internal Medicine 01/07/19 documented as of this encounter
--- OUTSIDE RECORDS SUMMARY | 2024-12-05 17:37 | XMS_ITS | Encounter Summary ---
Author Organization [facility] Address [address] [facility] Attn: Epic [place] [address] Care Team Providers Care Historiography Professor Name Role Phone Amado Sylvester DO Primary Care Provider [phone] Encounter Details Date Type Department Care Team (Late st Contact Info) Description 04/08/1999 Outpatient Historical Claire Pittman MD [address] [place] [address] Social History Tobacco Use Types Packs/Day Years Used Date Smoking Tobacco: Never Assessed Comments Unknown Sex and Gender Information Value Date Recorded Sex Assigned at Female 03/04/2024 2:39 PM CDT Legal Sex Female 3:50 AM CERTIFIED PEST CONTROL TECHNICIAN Gender Identity Female 03/04/2024 2:39 PM CDT Sexual Orientation Not on file documented as of this encounter Plan of Treatment Not on file documented as of this encounter Visit Diagnoses Not on filedocumented in this encounter Care Teams Historiography Professor Relationship Specialty [place] [address] [facility] [address] [facility] [phone] PCP - General Internal Medicine 01/07/19 documented as of this encounter
--- OUTSIDE RECORDS SUMMARY | 2024-12-05 17:37 | XMS_ITS | Encounter Summary ---
Author Organization [facility] Address [address] [facility] Attn: [place] [address] Care Team Providers Care Vp Product Marketing Name Role Phone Amado Sylvester DO Primary Care Provider [phone] Encounter Details Date Type Department Care Team (Late st Contact Info) Description 09/07/2002 Outpatient Historical Vikram Correia MD [address] [place] [address] Social History Tobacco Use Types Packs/Day Years Used Date Smoking Tobacco: Never Assessed Comments Unknown Sex and Gender Information Value Date Recorded Sex Assigned at Female 03/04/2024 2:39 PM CDT Legal Sex Female 3:50 AM DIRECTOR CPG Gender Identity Female 03/04/2024 2:39 PM CDT Sexual Orientation Not on file documented as of this encounter Plan of Treatment Not on file documented as of this encounter Visit Diagnoses Not on filedocumented in this encounter Care Teams Vp Product Marketing Relationship Specialty [place] [address] [facility] [address] [facility] [address] PCP - General Internal Medicine 01/07/19 documented as of this encounter
--- OUTSIDE RECORDS SUMMARY | 2024-12-05 17:37 | XMS_ITS | Encounter Summary ---
Author Organization [facility] Address [address] [facility] Attn: [place] [address] Care Team Providers Care Gang Drill Press Operator Name Role Phone Amado Sylvester DO Primary Care Provider [phone] Encounter Details Date Type Department Care Team (Late st Contact Info) Description 04/28/2006 Outpatient Historical Vikram Correia MD [address] [place] [address] Dysuria (Primary Dx) Social History Tobacco Use Types Packs/Day Years Used Date Smoking Tobacco: Never Assessed Comments Unknown Sex and Gender Information Value Date Recorded Sex Assigned at Female 03/04/2024 2:39 PM CDT Legal Sex Female 3:50 AM DIRECTOR BUSINESS DEVELOPMENT Gender Identity Female 03/04/2024 2:39 PM CDT Sexual Orientation Not on file documented as of this encounter Plan of Treatment Not on file documented as of this encounter Visit Diagnoses Diagnosis Dysuria- Primary documented in this encounter Care Teams Gang Drill Press Operator Relationship Specialty [place] [address] [facility] [address] [facility] [phone] PCP - General Internal Medicine 01/07/19 documented as of this encounter
--- OUTSIDE RECORDS SUMMARY | 2024-12-05 17:37 | XMS_ITS | Encounter Summary ---
Author Organization [facility] Address [address] [place] [address] Care Team Providers Care Security Controls Assessor Name Role Phone Amado Sylvester DO Primary Care Provider [phone] Encounter Details Date Type Department Care Team (Late st Contact Info) Description 05/11/2006 Outpatient Historical [facility] Kebede, Bony Castañeda MD [address] [facility] [address] [place] [address] Unspecified Constipation (Primary Dx) Social History Tobacco Use Types Packs/Day Years Used Date Smoking Tobacco: Never Assessed Comments Unknown Sex and Gender Information Value Date Recorded Sex Assigned at Female 03/04/2024 2:39 PM CDT Legal Sex Female 3:50 AM SIGN ERECTOR Gender Identity Female 03/04/2024 2:39 PM CDT Sexual Orientation Not on file documented as of this encounter Plan of Treatment Not on file documented as of this encounter Visit Diagnoses Diagnosis Unspecified constipation- Primary documented in this encounter Care Teams Security Controls Assessor Relationship Specialty [place] [address] [place] [address] [facility] [address] PCP - General Internal Medicine 01/07/19 documented as of this encounter
--- OUTSIDE RECORDS SUMMARY | 2024-12-05 17:37 | XMS_ITS | Encounter Summary ---
Author Organization [facility] Address [address] [facility] Attn: [place] [address] Care Team Providers Care Bobbin Handler Name Role Phone Amado Sylvester DO Primary Care Provider Encounter Details Date Type Department Care Team (Late st Contact Info) Description 03/04/2000 Outpatient Historical Claire Pittman MD [address] [place] [address] Social History Tobacco Use Types Packs/Day Years Used Date Smoking Tobacco: Never Assessed Comments Unknown Sex and Gender Information Value Date Recorded Sex Assigned at Female 03/04/2024 2:39 PM CDT Legal Sex Female 3:50 AM ORCHID SUPERINTENDENT Gender Identity Female 03/04/2024 2:39 PM CDT Sexual Orientation Not on file documented as of this encounter Plan of Treatment Not on file documented as of this encounter Visit Diagnoses Not on filedocumented in this encounter Care Teams Bobbin Handler Relationship Specialty [place] [address] [facility] 45 [facility] [address] PCP - General Internal Medicine 01/07/19 documented as of this encounter
--- OUTSIDE RECORDS SUMMARY | 2024-12-05 17:37 | XMS_ITS | Encounter Summary ---
Author Organization [facility] Address [address] [facility] Attn: [place] [address] Care Team Providers Care Head Of Marketing Analytics Name Role Phone Amado Sylvester DO Primary Care Provider [phone] Encounter Details Date Type Department Care Team (Late st Contact Info) Description 10/09/1998 Outpatient Historical Vikram Correia MD [address] [place] [address] Social History Tobacco Use Types Packs/Day Years Used Date Smoking Tobacco: Never Assessed Comments Unknown Sex and Gender Information Value Date Recorded Sex Assigned at Female 03/04/2024 2:39 PM CDT Legal Sex Female 3:50 AM PAYABLE REPRESENTATIVE Gender Identity Female 03/04/2024 2:39 PM CDT Sexual Orientation Not on file documented as of this encounter Plan of Treatment Not on file documented as of this encounter Visit Diagnoses Not on filedocumented in this encounter Care Teams Head Of Marketing Analytics Relationship Specialty [place] [address] [facility] 45 [facility] [phone] PCP - General Internal Medicine 01/07/19 documented as of this encounter
--- OUTSIDE RECORDS SUMMARY | 2024-12-05 17:37 | XMS_ITS | Encounter Summary ---
Author Organization [employer] Address [address] [place] [address] Care Team Providers Care Surgical Aides Teacher Name Role Phone Amado Sylvester DO Primary Care Provider [phone] Encounter Details Date Type Department Care Team (Latest Contact Info) Description 10/15/2004 Outpatient Historical HIS CARDIOPULMONARY Vikram Correia MD [address] [place] [address] CARDIAC DYSRHYTHMIA NOS (Primary Dx) Social History Tobacco Use Types Packs/Day Years Used Date Smoking Tobacco: Never Assessed Comments Unknown Sex and Gender Information Value Date Recorded Sex Assigned at Female 03/04/2024 2:39 PM CDT Legal Sex Female 3:50 AM HEATER WORKER Gender Identity Female 03/04/2024 2:39 PM CDT Sexual Orientation Not on file documented as of this encounter Plan of Treatment Not on file documented as of this encounter Visit Diagnoses Diagnosis Cardiac dysrhythmia, unspecified- Primary documented in this encounter Care Teams Surgical Aides Teacher Relationship Specialty [place] [address] [facility] [address] [facility] [address] PCP - General Internal Medicine 01/07/19 documented as of this encounter
--- OUTSIDE RECORDS SUMMARY | 2024-12-05 17:37 | XMS_ITS | Encounter Summary ---
Author Organization [facility] Address [address] [facility] Attn: [place] [address] Care Team Providers Care Automobile Rental Clerk Name Role Phone Amado Sylvester DO Primary Care Provider [phone] Encounter Details Date Type Department Care Team (Late st Contact Info) Description 10/14/2005 Outpatient Historical Vikram Correia MD [address] [place] [address] Social History Tobacco Use Types Packs/Day Years Used Date Smoking Tobacco: Never Assessed Comments Unknown Sex and Gender Information Value Date Recorded Sex Assigned at Female 03/04/2024 2:39 PM CDT Legal Sex Female 3:50 AM DIRECTOR REGULATORY COMPLIANCE Gender Identity Female 03/04/2024 2:39 PM CDT Sexual Orientation Not on file documented as of this encounter Plan of Treatment Not on file documented as of this encounter Visit Diagnoses Not on filedocumented in this encounter Care Teams Automobile Rental Clerk Relationship Specialty [place] [address] [facility] 45 [facility] [address] PCP - General Internal Medicine 01/07/19 documented as of this encounter
--- OUTSIDE RECORDS SUMMARY | 2024-12-05 17:37 | XMS_ITS ---
Author Organization Unknown Address [address] [place], [place] [phone] Phone Care Team Providers Care Criminal Lawyer Name Role Phone KIRILL Esquivel Attending Unavailable OTHER PHYSICIAN Primary Unavailable Social History Type Status Start Date End Date Code Code Syst em Smoking History Unknown if ever smoked [address] Sex Female Medications Medication Start Date End Date Route Frequency Dose Code Code System Medication Instructions Home Meds metroNIDAZOLE 500MG Oral Tablet 04/21/2023 Unknown By mouth Daily 1 TABLET 208523 RxNorm 1 TABLET By mouth TWICE Daily [...] Code Code System PCN (penicillin) Rash (SNOMED-CT: 901630535) Active 9604661 SNOMED-CT GLUTEN NAUSEA, ABD PAIN (SNOMED-CT: null) Active 29933736 SNOMED-CT Plan of Treatment No Data Found Personal Care Team Section Performer Name Performer Role Active Date Inactive Da te
--- OUTSIDE RECORDS SUMMARY | 2024-12-05 17:37 | XMS_ITS | Encounter Summary ---
Author Organization [facility] Address [address] [facility] Attn: [place] [address] Care Team Providers Care Braiding Machine Tender Name Role Phone Amado Sylvester DO Primary Care Provider [phone] Encounter Details Date Type Department Care Team (Late st Contact Info) Description 03/01/2002 Outpatient Historical Vikram Correia MD [address] [place] [address] Social History Tobacco Use Types Packs/Day Years Used Date Smoking Tobacco: Never Assessed Comments Unknown Sex and Gender Information Value Date Recorded Sex Assigned at Female 03/04/2024 2:39 PM CDT Legal Sex Female 3:50 AM BOAT 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 [facility] [address] [facility] [address] PCP - General Internal Medicine 01/07/19 documented as of this encounter
--- OUTSIDE RECORDS SUMMARY | 2024-12-05 17:37 | XMS_ITS | Encounter Summary ---
Author Organization [facility] Address [address] [facility] Attn: [place] [address] Care Team Providers Care Camouflage Specialist Name Role Phone Amado Sylvester DO Primary Care Provider [phone] Encounter Details Date Type Department Care Team (Late st Contact Info) Description 09/10/1999 Outpatient Historical Vikram Correia MD [address] [place] [address] Social History Tobacco Use Types Packs/Day Years Used Date Smoking Tobacco: Never Assessed Comments Unknown Sex and Gender Information Value Date Recorded Sex Assigned at Female 03/04/2024 2:39 PM CDT Legal Sex Female 3:50 AM 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 [facility] 45 [facility] [address] PCP - General Internal Medicine 01/07/19 documented as of this encounter
--- OUTSIDE RECORDS SUMMARY | 2024-12-05 17:37 | XMS_ITS | Encounter Summary ---
Author Organization [facility] Address [address] [facility] Attn: Epic [place] [address] Care Team Providers Care Director Visual Name Role Phone Amado Sylvester DO Primary Care Provider [phone] Encounter Details Date Type Department Care Team (Late st Contact Info) Description 10/12/2004 Outpatient Historical Bony Kebede MD [address] [facility] [address] [place] [address] Social History Tobacco Use Types Packs/Day Years Used Date Smoking Tobacco: Never Assessed Comments Unknown Sex and Gender Information Value Date Recorded Sex Assigned at Female 03/04/2024 2:39 PM CDT Legal Sex Female 3:50 AM 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 [facility] 45 [facility] [phone] PCP - General Internal Medicine 01/07/19 documented as of this encounter
--- OUTSIDE RECORDS SUMMARY | 2024-12-05 17:37 | XMS_ITS | Encounter Summary ---
Author Organization [facility] Address [address] [place] [address] Care Team Providers Care Cyanide Pot Tender Name Role Phone Amado Sylvester DO Primary Care Provider [phone] Encounter Details Date Type Department Care Team (Late st Contact Info) Description 10/15/2004 Outpatient Historical [facility] Support Serv. (Peds Cardiology-[facility]) [address] [place] [place] [address] Andrea Nielsen MD NO ADDRESS ON FILE Social History Tobacco Use Types Packs/Day Years Used Date Smoking Tobacco: Never Assessed Comments Unknown Sex and Gender Information Value Date Recorded Sex Assigned at Female 03/04/2024 2:39 PM CDT Legal Sex Female 3:50 AM CONSULTING SOLUTION MANAGER Gender Identity Female 03/04/2024 2:39 PM CDT Sexual Orientation Not on file documented as of this encounter Plan of Treatment Not on file documented as of this encounter Visit Diagnoses Not on filedocumented in this encounter Care Teams Cyanide Pot Tender Relationship Specialty [place] [address] [facility] 45 [facility] [address] PCP - General Internal Medicine 01/07/19 documented as of this encounter
--- OUTSIDE RECORDS SUMMARY | 2024-12-05 17:37 | XMS_ITS | Encounter Summary ---
Author Organization [facility] Address [address] [facility] Attn: [place] [address] Care Team Providers Care Paper Plate Machine Tender Name Role Phone Amado Sylvester DO Primary Care Provider [phone] Encounter Details Date Type Department Care Team (Late st Contact Info) Description 07/20/2000 Outpatient Historical Vikram Correia MD [address] [place] [address] Social History Tobacco Use Types Packs/Day Years Used Date Smoking Tobacco: Never Assessed Comments Unknown Sex and Gender Information Value Date Recorded Sex Assigned at Female 03/04/2024 2:39 PM CDT Legal Sex Female 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 [facility] 45 [facility] [phone] PCP - General Internal Medicine 01/07/19 documented as of this encounter
--- OUTSIDE RECORDS SUMMARY | 2024-12-05 17:37 | XMS_ITS | Clinical Summary ---
Author Organization [facility] Address [address] [place] [address] Care Team Providers Care Evaluation Manager Name Role Phone Amado Sylvester DO Primary Care Provider Allergies Active Allergy Reactions Criticality Noted Date [...] Encounters Date Type Department Care Team Description 12/05/2024 Hospital Encounter [facility] OB Triage [address] [place] [address] Ayo Meyer MD 11/29/2024 External Device Data STL ABSTRACTION Provider, Abstract 11/14/2024 10:30 AM CDT visit [facility] [place] [address] [place] [address] Faiza Johnson MD care in third trimester (Primary Dx) 11/09/2024 Telephone [facility] Clinical Support [address] [place] [address] Yasemin Ahsby, RN 36w 2d transfer out 11/07/2024 11:30 AM CDT visit [facility] [address] [place] [address] Jonn Major MD screening for streptococcus B (Primary Dx); Normal , third trimester 11/05/2024 External Device Data STL ABSTRACTION Provider, Abstract 11/04/2024 External Device Data STL ABSTRACTION Provider, Abstract 11/02/2024 External Device Data STL ABSTRACTION Provider, Abstract 10/24/2024 1:00 PM BULK PIGMENT REDUCER visit [facility] [place] [address] [place] [address] Jonn Major MD Normal , third trimester (Primary Dx) 10/19/2024 External Device Data STL ABSTRACTION Provider, Abstract 10/10/2024 11:40 AM BULK PIGMENT REDUCER visit [facility] [place] [address] [place] [address] Faiza Johnson MD care in third trimester (Primary Dx) 10/10/2024 11:00 AM BULK PIGMENT REDUCER Ancillary Procedure [facility] [place] [address] [place] [address] Encounter for ultrasound to assess growth 09/27/2024 External Device Data STL ABSTRACTION Provider, Abstract 09/21/2024 External Device Data STL ABSTRACTION Provider, Abstract 09/21/2024 External Device Data STL ABSTRACTION Provider, Abstract 09/15/2024 12:40 PM BULK PIGMENT REDUCER Ancillary Procedure [facility] OB Triage [address] [place] [address] Estephania Mata MD 09/15/2024 11:15 AM BULK PIGMENT REDUCER - 09/15/2024 1:04 PM BULK PIGMENT REDUCER Hospital Encounter [facility] OB Triage [address] [place] [address] Ayo Meyer MD Discharge Disposition: Home or Self Care 09/15/2024 Travel 09/15/2024 Telephone [facility] Clinical Support [address] [place] [address] Jonn Major MD Spotting 09/12/2024 1:30 PM BULK PIGMENT REDUCER visit [facility] [address] [place] [address] Jonn Major MD Normal , third trimester (Primary Dx) 09/07/2024 Telephone [facility] Clinical Support [address] [place] [address] Yasemin Ashby, RN Upper Respiratory Symptoms (27w2d ) from Last 3 Months Immunizations Immunization Administration [...] PM CDT Legal Sex Female 3:50 AM BULK PIGMENT REDUCER Gender Identity Female 03/04/2024 2:39 PM CDT Sexual Orientation Not on file Occupation Industry Job Start Date Job End Date Not on file Not on file Not on file Not on file Last Filed Vital Signs Vital Sign Reading Time Taken Comments Blood Pressure 124/82 11/14/2024 10:53 AM CDT Pulse 97 05/09/2020 2:22 PM CDT Temperature 36.8 C (98.2 F) 09/15/2024 12:10 PM BULK PIGMENT REDUCER Respiratory Rate 18 09/15/2024 12:10 PM BULK PIGMENT REDUCER Oxygen Saturation 97% 05/09/2020 2:22 PM CDT Inhaled Oxygen Concentration - - Weight 101.4 kg (223 lb 8 oz) 11/14/2024 10:53 A M CDT Height 172.7 cm (5' 8 ) 11/14/2024 10:53 AM CDT Body Mass Index 33.98 11/14/2024 10:53 AM CDT Plan of Treatment Health Maintenance Due Date Last Done Comments INFLUENZA VACCINE (#1) 2024 5, 09/22/2014, 06/07/2013, Additional history exists CERVICAL CANCER SCREENING 09/10/2025 PAP SMEAR 09/10/2025 09/10/2022, 12/2 08/2020, 04/10/2020, Additional history exists DTAP/TDAP/TD VACCINES (8 - T d or Tdap) 04/16/2026 04/16/2016, 04/17/2009, 09/07/2002, Additional history exists HPV/Cotest (21-29) 09/10/2027 09/10/2022, 0 04/10/2020, 04/08/2019, Additional history exists HPV/Cotest (30-65) 09/10/2027 09/10/2022, 0 04/10/2020, 04/08/2019, Additional history exists HEPATITIS B VACCINES Completed 05/18/1998, 1997, 1997 HPV VACCINES Completed 10/14/2013, 1003/2013, 03/31/2012 CHLAMYDIA SCREENING (ANNUAL) 11-24 YEARS Discontinued 05/04/2024, 02/26/2023, 09/10/2022, Additional history exists RSV VACCINE (60+ or ) (No Doses Required) Completed Procedures Procedure Name Priority Date/Time Associated Diagnosis Comments (BROTH-ENRICHED) GROUP B STREP DETECTION Routine 11/07/2024 12:00 AM CDT screening for streptococcus B US OB FOLLOW UP PER FETUS Routine 10/10/2024 11:42 AM BULK PIGMENT REDUCER Encounter for ultrasound to assess growth US POC ULTRASOUND BEDSIDE Routine 09/15/2024 12:36 PM BULK PIGMENT REDUCER GC/CHLAMYDIA, UROGENITAL Routine 05/04/2024 12:00 AM CDT Positive test CERV/VAG CYTO SCREEN PAP W/HPV Routine 09/10/2022 12:00 AM BULK PIGMENT REDUCER Screening for cervical cancer from Last 3 Months or Most Recently Relevant to Health Maintenance Results * (BROTH-ENRICHED) GROUP B STREP DETECTION (11/07/2024 12:00 AM CDT) SOURCE *VAGINAL/REC KARI [facility] GROUP B STREP BY PCR NOT DETECTED NOT DETECTED [facility] Comment: Note per CDC guidelines optimal recovery is achieved by swabbing both the lower vagina and rectum (through the anal sphincter). Test Performed at: [facility] [address] [address] Luis Manuel Cao MD Genital (Vaginal/rectal) 11/07/2024 11/08/2024 4:04 AM CDT us Jonn Major MD MICROBIOLOGY - GENERAL ORDNaga [facility] Final Result [facility] [phone] [facility] [address] [address] * US OB FOLLOW UP PER FETUS (10/10/2024 11:42 AM BULK PIGMENT REDUCER) Anatomical Region Laterality Modality Pelvis Ultrasound 10/10/2024 11:0 7 AM BULK PIGMENT REDUCER Narrative 10/10/2024 12:09 PM BULK PIGMENT REDUCER CLINIC GROWTH ----- Pat. Name: MAI JORDAN Study Date: 10/10/2024 11:07am Pat. NO: [id number] Referring MD: AYO RODRIGUEZ MD Site: [facility] Senior Cyber Security Analyst: Belem Beth RDMS : 1995 Age: 29 ----- INDICATION ----- Supervision of Normal CODING ----- Diagnoses Z3A.32: Weeks of gestation Z34.83: Encounter for supervision of normal , unspecified Procedures 55488: Ultrasound, uterus, real time with image documentation, [...] 4 lb 12 oz EFW by Hadlock ([id number]) Head / Face / Neck Biometry: Cephalic [...] Procedure Note Faiza Johnson MD - 10/10/2024 [facility] ----- Pat. Name:Alyce JORDAN Date:10/10/2024 11:07am Pat. NO: [id number] MD:AYO RODRIGUEZ MD [facility] RDMS :1995Age:29 ----- INDICATION ----- Supervision of Normal CODING ----- Diagnoses Z3A.32: Weeks of gestation Z34.83: Encounter for supervision of normalpregnancy, unspecified Procedures 10062: Ultrasound, uterus, real time withimage documentation, follow [...] d KEVIN by LMP:12/05/2024 GA by prior [id number] w + 0 d KEVIN by prior [...] 4 lb 12 oz EFW by Hadlock ([id number]) Head / Face / Neck Biometry: Cephalic [...] US POC ULTRASOUND BEDSIDE (09/15/2024 12:36 PM BULK PIGMENT REDUCER) Narrative 09/15/2024 12:36 PM BULK PIGMENT REDUCER This exam was auto finalized to allow images to be stored to PACS. Please see associated Progress Note/Procedure Note from the same date. us Estephania Mata MD US ORDERABLES Final Result * GC/CHLAMYDIA, UROGENITAL (05/04/2024 12:00 AM CDT) CHLAMYDIA TRACHOMATIS RNA, TMA, UROGENITAL NOT DETECTED NOT DETECTED [facility] NEISSERIA GONORRHOEAE RNA, TMA, UROGENITAL NOT DETECTED NOT DETECTED [facility] COMMENT INFECTIOUS DISEASE [facility] Comment: The analytical performance characteristics of this assay, when used to test SurePath(TM) specimens have been determined by [facility]. The modifications have not been cleared or approved by the FDA. This assay has been validated pursuant to the CLIA regulations and is used for clinical purposes. For additional information, please refer to https://education.[employer]/faq/LPX376 (This link is being provided for information/ educational purposes only.) Test Performed at: [facility] [address] [facility] [place] [address] Luis Manuel Cao MD Urine (Urine, 1st catch) 05/04/2024 05/05/2024 6:06 AM CDT Ayo Rodriguez MD MICROBIOLOGY - NERME ORDERABLES Final Result [facility] [phone] [facility] [address] [place] [address] * CERV/VAG CYTO SCREEN PAP W/HPV (09/10/2022 12:00 AM BULK PIGMENT REDUCER) CLINICAL INFORMATION [facility] Comment:SCREENING LAST MENSTRUAL PERIOD [facility] Comment:NONE GIVEN PREV PAP: [facility] Comment:NONE GIVEN PREV BX: [facility] Comment:NONE GIVEN SOURCE [employer] Comment:End[employer]ervix ADEQUACY: [facility] Comment: Satisfactory for evaluation. Endocervical/transformation zone component present. Age and/or menstrual status not provided PAP INTERP [facility] Comment:Negative for intraep ithelial lesion or malignancy. COMMENT (PAP TEST) Q [facility] [facility] Comment: This Pap test has been evaluated with computer assisted technology. JOURNEYMAN PRESSMAN: Lois Maciel Comment: VIET RUIZ(ASCP) CT Screening Location: [place] [address] [place] [address] EXPLANATORY NOTE Que [employer] Maciel Comment: EXPLANATORY NOTE: The Pap is [...] information. HPV E6/E7 Not Detected Not Detected [facility] Comment: Methodology: Waistband Setter Lockstitch-Mediated Amplification This assay detects E6/E7 viral messenger RNA (mRNA) from 14 high-risk HPV types (16,18,31,33,35,39,45,51,52,56,58,59,66,68). Cervical sources are required for HPV testing. If a vaginal source from a patient who has had a total hysterectomy with removal of cervix was submitted, please contact the testing laboratory for alternative testing options. For additional information, please refer to http://education.[employer]/faq/VCG635p7 (This link if provided for information/ educational purposes only.) Test Performed at: [facility] [address] [place] [address] Rich Barriga D.O., MPH SL SWAB OF ENDOCERVIX / Unknown 09/10/2022 09/10/2022 8:28 PM BULK PIGMENT REDUCER us Ayo Rodriguez MD PATHOLOGY/CYTOLOG Y ORDERABLES Final Result [facility] [phone] [facility] [address] [place] [address] from Last 3 Months or Most Recently Relevant to Health Maintenance Advance Directives For more information, please contact: [phone] * Full Code (Latest Code Status on File) Date Activated Date Inactivated Comments 09/15/2024 11:21 AM 09/15/2024 3:23 PM * Full Code Date Activated Date Inactivated Comments 12/22/2013 3:29 PM 12/26/2013 2:30 PM * Full Code Date Activated Date Inactivated Comments 12/13/2013 9:34 AM 12/13/2013 1:24 PM Care Teams Evaluation Manager Relationship Specialty [place] [address] [address] PCP - General Internal Medicine 01/07/19
--- OUTSIDE RECORDS SUMMARY | 2024-12-05 17:37 | XMS_ITS | Encounter Summary ---
Author Organization [facility] Address [address] [place] [address] Care Team Providers Care Ground Helper [address] Railway Name Role Phone Amado Sylvester DO Primary Care Provider [phone] Encounter Details Date Type Department Care Team (Late st Contact Info) Description 12/05/2024 Hospital Encounter [facility] OB Triage [address] [place] [address] [place] [address] [place] [address] Social History Tobacco Use Types Packs/Day Years [...] CDT Legal Sex Female 3:50 AM CLOTH EDGE SINGER Gender Identity Female 03/04/2024 2:39 PM CDT Sexual Orientation Not on file Occupation Industry Job Start Date Job End Date Not on file Not on file Not on file Not on file documented as of this encounter Plan of Treatment Not on file documented as of this encounter Visit Diagnoses Not on filedocumented in this encounter Care Teams [address] [employer] Relationship Specialty [place] [address] [id number] PCP - General Internal Medicine 01/07/19 documented as of this encounter
--- OUTSIDE RECORDS SUMMARY | 2024-12-05 17:37 | XMS_ITS | Encounter Summary ---
Author Organization [facility] Address [address] [facility] Attn: [place] [address] Care Team Providers Care Voip Network Engineer Name Role Phone Amado Sylvester DO Primary Care Provider [phone] Encounter Details Date Type Department Care Team (Late st Contact Info) Description 08/26/1999 Outpatient Historical Vikram Correia MD [address] [place] [address] Social History Tobacco Use Types Packs/Day Years Used Date Smoking Tobacco: Never Assessed Comments Unknown Sex and Gender Information Value Date Recorded Sex Assigned at Female 03/04/2024 2:39 PM CDT 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 [facility] [address] [facility] [address] PCP - General Internal Medicine 01/07/19 documented as of this encounter
--- OUTSIDE RECORDS SUMMARY | 2024-12-05 17:37 | XMS_ITS | Encounter Summary ---
Author Organization [facility] Address [address] [facility] Attn: [place] [address] Care Team Providers Care Financial Counselor Name Role Phone Amado Sylvester DO Primary Care Provider [phone] Encounter Details Date Type Department Care Team (Late st Contact Info) Description 04/29/2001 Outpatient Historical Bony Kebede MD [address] [facility] [address] [place] [address] Social History Tobacco Use Types Packs/Day Years Used Date Smoking Tobacco: Never Assessed Comments Unknown Sex and Gender Information Value Date Recorded Sex Assigned at Female 03/04/2024 2:39 PM CDT Legal Sex Female 3:50 AM PROGRAM CONSULTANT Gender Identity Female 03/04/2024 2:39 PM CDT Sexual Orientation Not on file documented as of this encounter Plan of Treatment Not on file documented as of this encounter Visit Diagnoses Not on filedocumented in this encounter Care Teams Financial Counselor Relationship Specialty [place] [address] [facility] [address] [facility] [phone] PCP - General Internal Medicine 01/07/19 documented as of this encounter
--- OUTSIDE RECORDS SUMMARY | 2024-12-05 17:37 | XMS_ITS | Encounter Summary ---
Author Organization [facility] Address [address] [facility] Attn: [place] [address] Care Team Providers Care Digital Forensic Examiner Name Role Phone Amado Sylvester DO Primary Care Provider [phone] Encounter Details Date Type Department Care Team (Late st Contact Info) Description 09/03/1998 Outpatient Historical Vikram Correia MD [address] [place] [address] Social History Tobacco Use Types Packs/Day Years Used Date Smoking Tobacco: Never Assessed Comments Unknown Sex and Gender Information Value Date Recorded Sex Assigned at Female 03/04/2024 2:39 PM CDT Legal Sex Female 3:50 AM SHOE TRIMMER Gender Identity Female 03/04/2024 2:39 PM CDT Sexual Orientation Not on file documented as of this encounter Plan of Treatment Not on file documented as of this encounter Visit Diagnoses Not on filedocumented in this encounter Care Teams Digital Forensic Examiner Relationship Specialty [place] [address] [facility] [address] [facility] [address] PCP - General Internal Medicine 01/07/19 documented as of this encounter
--- OUTSIDE RECORDS SUMMARY | 2024-12-05 17:37 | XMS_ITS | Encounter Summary ---
Author Organization [facility] Address [address] [facility] Attn: Epic [place] [address] Care Team Providers Care Metallurgical Laboratory Assistant Name Role Phone Amado Sylvester DO Primary Care Provider [phone] Encounter Details Date Type Department Care Team (Late st Contact Info) Description 10/26/2000 Outpatient Historical Vikram Correia MD [address] [place] [address] Social History Tobacco Use Types Packs/Day Years Used Date Smoking Tobacco: Never Assessed Comments Unknown Sex and Gender Information Value Date Recorded Sex Assigned at Female 03/04/2024 2:39 PM CDT Legal Sex Female 3:50 AM BAND SAW RUNNER Gender Identity Female 03/04/2024 2:39 PM CDT Sexual Orientation Not on file documented as of this encounter Plan of Treatment Not on file documented as of this encounter Visit Diagnoses Not on filedocumented in this encounter Care Teams Metallurgical Laboratory Assistant Relationship Specialty [place] [address] [facility] [address] [facility] [address] PCP - General Internal Medicine 01/07/19 documented as of this encounter
--- OUTSIDE RECORDS SUMMARY | 2024-12-05 17:37 | XMS_ITS | Encounter Summary ---
Author Organization [facility] Address [address] [facility] Attn: [place] [address] Care Team Providers Care Mechanic Recovery Name Role Phone Amado Sylvester DO Primary Care Provider [phone] Encounter Details Date Type Department Care Team (Late st Contact Info) Description 09/03/1998 Outpatient Historical Vikram Correia MD [address] [place] [address] Social History Tobacco Use Types Packs/Day Years Used Date Smoking Tobacco: Never Assessed Comments Unknown Sex and Gender Information Value Date Recorded Sex Assigned at Female 03/04/2024 2:39 PM CDT Legal Sex Female 3:50 AM CONCRETE BUCKET UNLOADER Gender Identity Female 03/04/2024 2:39 PM CDT Sexual Orientation Not on file documented as of this encounter Plan of Treatment Not on file documented as of this encounter Visit Diagnoses Not on filedocumented in this encounter Care Teams Mechanic Recovery Relationship Specialty [place] [address] [facility] [address] [facility] [address] PCP - General Internal Medicine 01/07/19 documented as of this encounter
--- OUTSIDE RECORDS SUMMARY | 2024-12-05 17:37 | XMS_ITS | Encounter Summary ---
Author Organization [facility] Address [address] [facility] Attn: [place] [address] Care Team Providers Care Slab Off Mill Tender Name Role Phone Amado Sylvester DO Primary Care Provider [phone] Encounter Details Date Type Department Care Team (Late st Contact Info) Description 10/05/2000 Outpatient Historical Vikram Correia MD [address] [place] [address] Social History Tobacco Use Types Packs/Day Years Used Date Smoking Tobacco: Never Assessed Comments Unknown Sex and Gender Information Value Date Recorded Sex Assigned at Female 03/04/2024 2:39 PM CDT Legal Sex Female 3:50 AM DRYING OVEN TENDER Gender Identity Female 03/04/2024 2:39 PM CDT Sexual Orientation Not on file documented as of this encounter Plan of Treatment Not on file documented as of this encounter Visit Diagnoses Not on filedocumented in this encounter Care Teams Slab Off Mill Tender Relationship Specialty [place] [address] [facility] [address] [facility] [address] PCP - General Internal Medicine 01/07/19 documented as of this encounter
--- OUTSIDE RECORDS SUMMARY | 2024-12-05 17:37 | XMS_ITS | Encounter Summary ---
Author Organization [facility] Address [address] [facility] Attn: [place] [address] Care Team Providers Care Paster Supervisor Name Role Phone Amado Sylvester DO Primary Care Provider [phone] Encounter Details Date Type Department Care Team (Late st Contact Info) Description 11/26/1998 Outpatient Historical Vikram Correia MD [address] [place] [address] Social History Tobacco Use Types Packs/Day Years Used Date Smoking Tobacco: Never Assessed Comments Unknown Sex and Gender Information Value Date Recorded Sex Assigned at Female 03/04/2024 2:39 PM CDT Legal Sex Female 3:50 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 [facility] [address] [facility] [address] PCP - General Internal Medicine 01/07/19 documented as of this encounter
--- OUTSIDE RECORDS SUMMARY | 2024-12-05 17:37 | XMS_ITS | Encounter Summary ---
Author Organization [facility] Address [address] [facility] Attn: [place] [address] Care Team Providers Care Video Tape Editor Name Role Phone Amado Sylvester DO Primary Care Provider [phone] Encounter Details Date Type Department Care Team (Late st Contact Info) Description 09/17/2001 Outpatient Historical Vikram Correia MD [address] [place] [address] Social History Tobacco Use Types Packs/Day Years Used Date Smoking Tobacco: Never Assessed Comments Unknown Sex and Gender Information Value Date Recorded Sex Assigned at Female 03/04/2024 2:39 PM CDT Legal Sex Female 3:50 AM CREMATORY ATTENDANT Gender Identity Female 03/04/2024 2:39 PM CDT Sexual Orientation Not on file documented as of this encounter Plan of Treatment Not on file documented as of this encounter Visit Diagnoses Not on filedocumented in this encounter Care Teams Video Tape Editor Relationship Specialty [place] [address] [facility] [address] [facility] [address] PCP - General Internal Medicine 01/07/19 documented as of this encounter
--- OUTSIDE RECORDS SUMMARY | 2024-12-05 17:37 | XMS_ITS | Encounter Summary ---
Author Organization [facility] Address [address] [facility] Attn: Epic [place] [address] Care Team Providers Care Demand Generation Manager Name Role Phone Amado Sylvester DO Primary Care Provider [phone] Encounter Details Date Type Department Care Team (Late st Contact Info) Description 02/25/1999 Outpatient Historical Vikram Correia MD [address] [place] [address] Social History Tobacco Use Types Packs/Day Years Used Date Smoking Tobacco: Never Assessed Comments Unknown Sex and Gender Information Value Date Recorded Sex Assigned at Female 03/04/2024 2:39 PM CDT Legal Sex Female 3:50 AM MEDICAL ONCOLOGIST Gender Identity Female 03/04/2024 2:39 PM CDT Sexual Orientation Not on file documented as of this encounter Plan of Treatment Not on file documented as of this encounter Visit Diagnoses Not on filedocumented in this encounter Care Teams Demand Generation Manager Relationship Specialty [place] [address] [facility] [address] [facility] [phone] PCP - General Internal Medicine 01/07/19 documented as of this encounter
--- OUTSIDE RECORDS SUMMARY | 2024-12-05 17:37 | XMS_ITS | Encounter Summary ---
Author Organization [facility] Address [address] [facility] [place] [facility] Attn: Epic [place] [address] Care Team Providers Care Psychiatric Social Worker Supervisor Name Role Phone Amado Sylvester DO Primary Care Provider [phone] Encounter Details Date Type Department Care Team (Late st Contact Info) Description 09/23/2004 Outpatient Historical Vikram Correia MD [address] [place] [address] Social History Tobacco Use Types Packs/Day Years Used Date Smoking Tobacco: Never Assessed Comments Unknown Sex and Gender Information Value Date Recorded Sex Assigned at Female 03/04/2024 2:39 PM CDT Legal Sex Female 3:50 AM SERVICE DESK SPECIALIST Gender Identity Female 03/04/2024 2:39 PM CDT Sexual Orientation Not on file documented as of this encounter Plan of Treatment Not on file documented as of this encounter Visit Diagnoses Not on filedocumented in this encounter Care Teams Psychiatric Social Worker Supervisor Relationship Specialty [place] [address] [facility] [address] [facility] [phone] PCP - General Internal Medicine 01/07/19 documented as of this encounter
--- OUTSIDE RECORDS SUMMARY | 2024-12-05 17:37 | XMS_ITS | Encounter Summary ---
Author Organization [facility] Address [address] [facility] Attn: Epic [place] [address] Care Team Providers Care Wire Weaving Loom Setter Name Role Phone Amado Sylvester DO Primary Care Provider [phone] Encounter Details Date Type Department Care Team (Late st Contact Info) Description 08/02/1999 Outpatient Historical Vikram Correia MD [address] [place] [address] Social History Tobacco Use Types Packs/Day Years Used Date Smoking Tobacco: Never Assessed Comments Unknown Sex and Gender Information Value Date Recorded Sex Assigned at Female 03/04/2024 2:39 PM CDT Legal Sex Female 3:50 AM COVER CUTTER Gender Identity Female 03/04/2024 2:39 PM CDT Sexual Orientation Not on file documented as of this encounter Plan of Treatment Not on file documented as of this encounter Visit Diagnoses Not on filedocumented in this encounter Care Teams Wire Weaving Loom Setter Relationship Specialty [place] [address] [facility] [address] [facility] [id number] PCP - General Internal Medicine 01/07/19 documented as of this encounter
--- OUTSIDE RECORDS SUMMARY | 2024-12-05 17:37 | XMS_ITS | Encounter Summary ---
Author Organization [facility] Address [address] [facility] Attn: Epic [place] [address] Care Team Providers Care Geophysical Drafter Name Role Phone Amado Slyvester DO Primary Care Provider [phone] Encounter Details Date Type Department Care Team (Late st Contact Info) Description 04/09/2000 Outpatient Historical Claire Pittman MD [address] [place] [address] Social History Tobacco Use Types Packs/Day Years Used Date Smoking Tobacco: Never Assessed Comments Unknown Sex and Gender Information Value Date Recorded Sex Assigned at Female 03/04/2024 2:39 PM CDT Legal Sex Female 3:50 AM CREOSOTING ENGINEER Gender Identity Female 03/04/2024 2:39 PM CDT Sexual Orientation Not on file documented as of this encounter Plan of Treatment Not on file documented as of this encounter Visit Diagnoses Not on filedocumented in this encounter Care Teams Geophysical Drafter Relationship Specialty [place] [address] [facility] [address] [facility] [address] PCP - General Internal Medicine 01/07/19 documented as of this encounter
--- OUTSIDE RECORDS SUMMARY | 2024-12-05 17:38 | XMS_ITS ---
Author Organization Unknown Address [address] [place], [place] [id number] Phone Care Team Providers Care Grapple Skidder Operator Name Role Phone LEANDRO ADAM Attending Unavailable OTHER PHYSICIAN Primary Unavailable Social History Type Status Start Date End Date Code Code Syst em Smoking History Unknown if ever smoked [address] Sex Female Vital Signs Vital Sign Value Unit [place] Value [place] Unit Date/Time Recent/Initial? Code Code System Body Mass Index 26.30 kg/m2 04/21/2023 09:34 Initial 63045 -5 [facility] Systolic Blood Pressure 118 mm[Hg] 04/21/2023 09:34 Initial 8480- 6 [facility] Diastolic Blood Pressure 82 mm[Hg] 04/21/2023 09:34 Initial 8462- 4 [facility] Body Surface Area 1.94 m2 04/21/2023 09:34 Initial 3140- 1 [facility] Height 172.720 0 cm 68.00 in 04/21/2023 09:34 Initial 8302- 2 [facility] O2 Saturation 98 % 2022 09:34 Initial 65808 -5 [facility] Pulse 86.0 /min 04/21/2023 09:34 Initial 8867- 4 [facility] Temperature 36.5 Alondra 97.7 F 04/21/20 09:34 Initial 8310- 5 [facility] Weight 78.47 kg 173.00 lbs 04/21/2023 09:34 Initial 08034 -7 [facility] Medications Medication Start Date End Date Route Frequency Dose Code Code System Medication Instructions Home Meds metroNIDAZOLE 500MG Oral Tablet 04/21/2023 Unknown By mouth Daily 1 TABLET 425272 RxNorm 1 TABLET By mouth TWICE Daily [...] Code Code System PCN (penicillin) Rash (SNOMED-CT: 684676474) Active 4948258 SNOMED-CT GLUTEN NAUSEA, ABD PAIN (SNOMED-CT: null) Active 52348310 SNOMED-CT Plan of Treatment Future Order Description Future Order Date Futu re Order Loinc: BACTERIAL VAGINOSIS RAPID TEST 04/21/2023 LOINC: 6410-5 CULTURE YEAST, WITH IDENTIFICATION 04/21/2023 LOINC: 67353-0 Encounters Encounter Diagnosis Start Date Code Code Sys tem Acute vaginitis 04/21/2023 42262335 SNOMED-CT Personal Care Team Section Performer Name Performer Role Active Date Inactive Da te Progress Notes [facility] 04/21/2023 10:50 Admission Date/Time: 04/21/2023 09:18 Convenient Care Visit Chief Complaint: FEMALE ISSUES HPI: Presents ambulatory to clinic with complaint of white vaginal discharge with a fishy odor and vaginal irritation. Was seen at her COILED TUBING SUPERVISOR office in [facility] on 02/26/23 and diagnosed with BV and treated with Oral Flagyl for 1 week. Reports that she had good improvement but it did not feel like it completely resolved. Had discussed this with the [facility] and the prescribed her Flagyl in [...] negative. 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 ER if any symptoms become severe or develops abdominal pain or fever. *This plan has been reviewed with the patient Questions and concerns were addressed. Patient verbalized understanding of the treatment plan and need for follow up. This examination was transcribed using the [employer] voice recognition system without human urban forester. In an effort to expedite patient care, this report has not been adjusted for typographical, or medical or syntax by a trained medical care evaluation specialist. Allergy Table Allergen Type Reaction PCN (penicillin) [...]
[2024-12-05 18:00] VITALS: BP 133/82; PULSE 91
[2024-12-05 19:00] VITALS: BP 137/87; PULSE 88
[2024-12-05 19:51] VITALS: TEMP 36.7
[2024-12-05 21:01] VITALS: BP 113/79; PULSE 78
[2024-12-06] VITALS (364 sets, daily range): BP systolic 59–154; BP diastolic 34–102; PULSE 31–256; TEMP 36.3–38.8; O2SAT 88–100
[2024-12-06] MEDS: LACTATED RINGERS 1,000 ML 125 ML IV CONT ×4 (05:00→21:43)
--- NOTE | 2024-12-06 05:39 | WPDANESEPP ---
Anes - Eval Pre Procedure Procedure: Labor Epidural Date/Time: 12/06/24 05:39 Surgeon: Ghada Preop Diagnosis: Labor Pain Pre Op Diagnosis: iol Patient Data Age: 29 Gender: F Height: 1.73 m Weight: 102.5 kg Last Vital Signs Temp 36.6 C 12/06/24 02:00 Pulse 129 H 12/06/24 05:00 BP 132/102 H 12/06/24 05:00 Pulse Ox 98 12/06/24 05:35 O2 Del Method Room Air 12/05/24 16:26 Allergies Allergy/AdvReac Type Severity Reaction Status Date / Time Penicillins Allergy Mild Rash Verified 11/30/24 13:56 gluten AdvReac Mild intolerant Verified 11/30/24 13:56 Home Medications ?Medication ?Instructions ?Recorded ?Confirmed ?Type docosahexaenoic acid 200 mg mg PO 11/22/24 11/30/24 History capsule ( DHA) hyoscyamine sulfate 0.125 mg 0.125 mg PO QID PRN n/a 11/22/24 11/30/24 History tablet (Levsin) Laboratory Tests 12/05/24 16:06 WBC 11.9 H K/mm3 (4.5-10.0) RBC 4.27 M/mm3 (4.2-5.4) Hgb 12.3 g/dL (12.0-15.0) Hct 37.4 % (37.0-47.0) MCV 87.6 fl (80-100) MCH 28.8 pg (26-34) MCHC 32.9 g/dl (32-36) RDW 15.3 H % (11.5-14.5) Plt Count 278 k/mm3 (150-375) MPV 11.0 H fl (7.4-10.4) Immature Gran % (Auto) 0.4 % (0-0.5) Neut % (Auto) 74.2 H % (45.5-73.1) Lymph % (Auto) 19.4 % (18.3-44.2) [place] % (Auto) 4.6 % (2.6-8.5) Eos % (Auto) 1.0 % (0-4.4) Baso % (Auto) 0.4 % (0.2-1.2) Lymph # (Auto) 2.30 K/mm3 (0.9-3.2) [place] # (Auto) 0.5 K/mm3 (0.1-0.6) Eos # (Auto) 0.1 K/mm3 (0-0.3) Baso # (Auto) 0.1 K/mm3 (0.0-0.1) Abs Immat Gran (auto) 0.05 H K/mm3 (0.00-0.031) Absolute Neuts (auto) 8.8 H K/mm3 (1.3-6.7) Absolute Nucleated RBC 0.000 K/mm3 (0.0-0.012) Nucleated RBC % 0.0 % (0.0-0.2) Syphilis IgG/IgM Ab Negative (Negative) HIV 1&2 Ab/P24 Ag 4thGn Negative (Negative) Blood Type O Positive Antibody Screen Negative : gestational age (, KEVIN 12/05/24) HCG: positive Patient hx anesthesia problems: none Family hx anesthesia problems: none Results Review: All pre-operative results and documents have been reviewed as part of the pre-operative evaluation. [facility] Past Medical History Medical History Allergies Surgical History Surgical History [place] teeth removed Family History Family History Father Alcoholism Social History Social History Smoking status: Never smoker Second hand tobacco smoke exposure: No Alcohol intake: never Substance use: never Do You Feel Safe in your Home?: Yes Lack of Transportation: No Lack of Food: Never True Current Housing: I Have Housing Concerned About Future Housing: No Difficulty Paying Gas/Electric Bills: No Difficulty Paying for Meds: No Currently Unemployed: No Education: Bachelor's Degree Difficulty w/ Childcare or Family Care: No Exam Day of Procedure 12/06/24 05:39 Patient weight: obese Heart: regular rate and rhythm Lungs: normal air movement Airway: Mallampati scale class II Neurological: alert and oriented
[2024-12-06] MEDS: CALCIUM CARBONATE (TUMS) 500 MG (200 MG ELEMENTAL) PO (07:41)
--- NOTE | 2024-12-06 08:14 | P.HP_ITS ---
H&P: HPI History of Present Illness Date/Time: 12/06/24 08:14 Chief Complaint: induction of labor Narrative: patient is a 29-year-old G1 at 40 weeks presented with complaints of contractions on monitoring she had frequent but irregular contractions her cervix was closed. [place]. She was given options for induction of labor. She was informed of risks benefits of induction of labor versus spontaneous labor. She has opted for induction of labor. course significant for transfer in late 3rd trimester. She did receive early care she had a 1st trimester ultrasound that had an EDC consistent with her last menstrual period. course uncomplicated. GBS negative. Review of Systems Review of Systems: All systems reviewed & are unremarkable except as noted in HPI and below Constitutional: Constitutional: Reports no additional constitutional complaints and Denies headache(s) Eyes: Eyes: Denies spots in vision ENT: Reports system reviewed and no additional complaints, except as documented and Denies headache(s) Cardiovascular: Cardiovascular: Denies chest pain and Denies dyspnea Respiratory: Respiratory: Denies dyspnea Gastrointestinal: Gastrointestinal: Reports no additional gastrointestinal complaints Genitourinary: Genitourinary: Reports amenorrhea Musculoskeletal: Musculoskeletal: Reports no additional musculoskeletal complaints Integumentary/Breasts: Skin/Breast: Denies breast mass and Denies rash Neurologic: Denies headache(s) Psychiatric: Psychiatric: Reports no additional psychiatric complaints PMFSH Past Medical History Medical History Allergies Surgical History Surgical History [place] teeth removed Family History Family History Father Alcoholism Social History Social History Smoking status: Never smoker Second hand tobacco smoke exposure: No Alcohol intake: never Substance use: never Do You Feel Safe in your Home?: Yes Lack of Transportation: No Lack of Food: Never True Current Housing: I Have Housing Concerned About Future Housing: No Difficulty Paying Gas/Electric Bills: No Difficulty Paying for Meds: No Currently Unemployed: No Education: Bachelor's Degree Difficulty w/ Childcare or Family Care: No Meds Home Medications and Allergies Home Medications ?Medication ?Instructions ?Recorded ?Confirmed ?Type docosahexaenoic acid 200 mg mg PO 11/22/24 11/30/24 History capsule ( DHA) hyoscyamine sulfate 0.125 mg 0.125 mg PO QID PRN n/a 11/22/24 11/30/24 History tablet (Levsin) Allergies Allergy/AdvReac Type Severity Reaction Status Date / Time Penicillins Allergy Mild Rash Verified 11/30/24 13:56 gluten AdvReac Mild intolerant Verified 11/30/24 13:56 Vital Signs Vital Signs - 24 hr 12/05/24 14:36 12/05/24 16:26 12/05/24 17:00 Temperature 98.5 F Pulse Rate 93 Blood Pressure 121/86 Pulse Oximetry Oxygen Delivery Room Air 12/05/24 18:00 12/05/24 19:00 12/05/24 19:51 Temperature 98.1 F Pulse Rate 91 88 Blood Pressure 133/82 137/87 Pulse Oximetry Oxygen Delivery 12/05/24 21:01 12/06/24 00:00 12/06/24 00:28 Temperature 97.3 F L Pulse Rate 78 Blood Pressure 113/79 Pulse Oximetry 98 Oxygen Delivery 12/06/24 00:33 12/06/24 00:36 12/06/24 00:41 Temperature Pulse Rate 87 Blood Pressure 118/78 Pulse Oximetry 97 99 100 Oxygen Delivery 12/06/24 00:44 12/06/24 00:49 12/06/24 00:54 Temperature Pulse Rate Blood Pressure Pulse Oximetry 98 99 96 Oxygen Delivery 12/06/24 00:59 12/06/24 01:00 12/06/24 01:04 Temperature Pulse Rate 102 H Blood Pressure 128/94 H Pulse Oximetry 99 99 Oxygen Delivery 12/06/24 01:09 12/06/24 01:14 12/06/24 01:19 Temperature Pulse Rate Blood Pressure Pulse Oximetry 99 100 98 Oxygen Delivery 12/06/24 01:24 12/06/24 01:29 12/06/24 01:34 Temperature Pulse Rate Blood Pressure Pulse Oximetry 100 100 99 Oxygen Delivery 12/06/24 01:39 12/06/24 01:44 12/06/24 01:49 Temperature Pulse Rate Blood Pressure Pulse Oximetry 100 100 99 Oxygen Delivery 12/06/24 01:54 12/06/24 01:55 04/08/25 02:00 Temperature 97.9 F Pulse Rate 82 Blood Pressure 121/92 H Pulse Oximetry 100 99 98 Oxygen Delivery 12/06/24 02:05 12/06/24 02:10 12/06/24 02:15 Temperature Pulse Rate Blood Pressure Pulse Oximetry 99 99 98 Oxygen Delivery 12/06/24 02:20 12/06/24 02:25 12/06/24 02:30 Temperature Pulse Rate Blood Pressure Pulse Oximetry 100 100 96 Oxygen Delivery 12/06/24 02:35 12/06/24 02:40 12/06/24 02:45 Temperature Pulse Rate Blood Pressure Pulse Oximetry 98 99 100 Oxygen Delivery 12/06/24 02:50 12/06/24 02:55 12/06/24 03:00 Temperature Pulse Rate 79 Blood Pressure 123/80 Pulse Oximetry 99 97 97 Oxygen Delivery 12/06/24 03:05 12/06/24 03:10 12/06/24 03:15 Temperature Pulse Rate Blood Pressure Pulse Oximetry 100 98 99 Oxygen Delivery 12/06/24 03:20 12/06/24 03:25 12/06/24 03:30 Temperature Pulse Rate Blood Pressure Pulse Oximetry 100 99 99 Oxygen Delivery 12/06/24 03:35 12/06/24 03:40 12/06/24 03:45 Temperature Pulse Rate Blood Pressure Pulse Oximetry 99 98 97 Oxygen Delivery 12/06/24 03:50 12/06/24 03:55 12/06/24 04:00 Temperature Pulse Rate 75 Blood Pressure 141/90 H Pulse Oximetry 99 96 97 Oxygen Delivery 12/06/24 04:05 12/06/24 04:10 12/06/24 04:15 Temperature Pulse Rate Blood Pressure Pulse Oximetry 97 95 99 Oxygen Delivery 12/06/24 04:20 12/06/24 04:30 12/06/24 04:35 Temperature Pulse Rate Blood Pressure Pulse Oximetry 98 100 99 Oxygen Delivery 12/06/24 04:40 12/06/24 04:45 12/06/24 04:50 Temperature Pulse Rate Blood Pressure Pulse Oximetry 99 99 100 Oxygen Delivery 12/06/24 04:55 12/06/24 05:00 12/06/24 05:05 Temperature Pulse Rate 129 H Blood Pressure 132/102 H Pulse Oximetry 100 100 99 Oxygen Delivery 12/06/24 05:10 12/06/24 05:15 12/06/24 05:20 Temperature Pulse Rate Blood Pressure Pulse Oximetry 100 100 99 Oxygen Delivery 12/06/24 05:25 12/06/24 05:30 12/06/24 05:35 Temperature Pulse Rate Blood Pressure Pulse Oximetry 100 100 98 Oxygen Delivery 12/06/24 05:41 12/06/24 05:46 12/06/24 05:48 Temperature Pulse Rate 102 H Blood Pressure 136/100 H Pulse Oximetry 98 98 Oxygen Delivery 12/06/24 05:50 12/06/24 05:51 12/06/24 05:52 Temperature Pulse Rate 91 109 H Blood Pressure 154/91 H 136/84 Pulse Oximetry 98 Oxygen Delivery 12/06/24 05:55 12/06/24 05:56 12/06/24 05:58 Temperature Pulse Rate 99 90 Blood Pressure 117/54 L 109/58 L Pulse Oximetry 99 Oxygen Delivery 12/06/24 06:00 12/06/24 06:01 12/06/24 06:02 Temperature Pulse Rate 94 94 Blood Pressure 116/60 114/66 Pulse Oximetry 99 Oxygen Delivery 12/06/24 06:05 12/06/24 06:06 12/06/24 06:08 Temperature Pulse Rate 121 H 92 Blood Pressure 103/68 111/56 L Pulse Oximetry 99 Oxygen Delivery 12/06/24 06:10 12/06/24 06:11 12/06/24 06:12 Temperature Pulse Rate 105 H 95 Blood Pressure 105/62 97/69 L Pulse Oximetry 99 Oxygen Delivery 12/06/24 06:15 12/06/24 06:16 12/06/24 06:17 Temperature Pulse Rate 88 89 Blood Pressure 103/71 104/64 Pulse Oximetry 97 Oxygen Delivery 12/06/24 06:20 12/06/24 06:21 12/06/24 06:23 Temperature Pulse Rate 95 80 Blood Pressure 106/70 105/59 L Pulse Oximetry 100 Oxygen Delivery 12/06/24 06:25 12/06/24 06:27 12/06/24 06:30 Temperature Pulse Rate 94 96 83 Blood Pressure 114/63 109/60 110/65 Pulse Oximetry 99 100 Oxygen Delivery 12/06/24 06:32 12/06/24 06:35 12/06/24 06:38 Temperature Pulse Rate 72 91 70 Blood Pressure 122/79 115/68 110/62 Pulse Oximetry 97 Oxygen Delivery 12/06/24 06:40 12/06/24 06:42 12/06/24 06:45 Temperature Pulse Rate 77 96 97 Blood Pressure 111/55 L 109/77 111/76 Pulse Oximetry 97 98 Oxygen Delivery 12/06/24 06:50 12/06/24 06:54 12/06/24 06:56 Temperature Pulse Rate 120 H Blood Pressure 109/63 Pulse Oximetry 100 96 Oxygen Delivery 12/06/24 06:59 12/06/24 07:01 12/06/24 07:04 Temperature Pulse Rate 97 Blood Pressure 132/79 Pulse Oximetry 100 99 Oxygen Delivery 12/06/24 07:05 12/06/24 07:09 12/06/24 07:14 Temperature 97.5 F L Pulse Rate Blood Pressure Pulse Oximetry 100 98 Oxygen Delivery 12/06/24 07:15 12/06/24 07:19 12/06/24 07:24 Temperature Pulse Rate 62 Blood Pressure 115/68 Pulse Oximetry 97 99 Oxygen Delivery 12/06/24 07:29 12/06/24 07:30 12/06/24 07:34 Temperature Pulse Rate 96 Blood Pressure 89/51 L Pulse Oximetry 98 98 Oxygen Delivery 12/06/24 07:39 12/06/24 07:44 12/06/24 07:45 Temperature Pulse Rate 70 Blood Pressure 94/45 L Pulse Oximetry 97 96 Oxygen Delivery 12/06/24 07:49 12/06/24 07:54 12/06/24 07:59 Temperature Pulse Rate Blood Pressure Pulse Oximetry 98 99 98 Oxygen Delivery 12/06/24 08:00 12/06/24 08:04 12/06/24 08:09 Temperature Pulse Rate 256 H Blood Pressure 113/47 L Pulse Oximetry 98 97 Oxygen Delivery Exam Const: General: no acute distress Eyes: General: appearance normal, both eyes and all related structures Resp: Effort & Inspection: normal respiratory effort Cardio: Rate: regular rate GI: Other: Gravid no fundal tenderness no right upper quadrant pain Skin: General skin exam: no rashes or lesions noted Neuro: Cognition (Neuro): normal cognition Extrem: General: normal to inspection Psych: Mental Status: mental status grossly normal H&P: Results Labs Labs: Short CBC 12/05/24 Range/Units 16:06 WBC 11.9 H (4.5-10.0) K/mm3 Hgb 12.3 (12.0-15.0) g/dL Hct 37.4 (37.0-47.0) % Plt Count 278 (150-375) k/mm3 Assessment and Plan Assessment and plan (1) Elective induction of labor planned: Status: Acute Assessment and Plan: 1. Admit 2. Cytotec induction.
[2024-12-06] MEDS: OXYTOCIN 30 UNITS/NS 500 ML 30 UNITS/500 ML BAG IV CONT (09:27)
[2024-12-06] MEDS: FAMOTIDINE 20 MG TABLET PO (12:41)
[2024-12-06] MEDS: ceFAZolin 2 GM/D5W 50 ML 2 GM/50 ML BAG IVPB (14:20)
[2024-12-06] MEDS: ACETAMINOPHEN 500 MG TABLET 1000 MG PO (15:06)
[2024-12-06] MEDS: GENTAMICIN SULFATE IVPB (15:43)
[2024-12-06] MEDS: DEXTROSE 5% IVPB (15:43)
[2024-12-06] MEDS: diphenhydrAMINE HCl INJ 50 MG/ML VIAL IV PUSH (20:11)
[2024-12-06] MEDS: CALCIUM CARBONATE (TUMS) 500 MG (200 MG ELEMENTAL) 400 MG PO (20:12)
--- NOTE | 2024-12-06 23:13 | PM.OBPRVD ---
OB - Vaginal Delivery Note Procedure Delivery date: 12/07/24 Intrapartal Events: Chorioamnionitis Induction method: Per Misoprostol Protocol Delivery augmentation: Pitocin Delivery monitor: External FHT and Internal Uterine Route of delivery: Laceration Description: Perineal - 1st Degree Delivery repair: vicryl (3.0 vicryl) Specimen: Yes (placenta and cord) Quantitative Blood Loss (ml): 300 Anesthesia type: Epidural Disposition: Floor Complications: No immediate complications [place] Baby Date of : 12/06/24 Time of : 22:54 Gestational Age by Date: 40 Infant gender: Male Weight (pounds): 9 Weight (ounces): 1 presentation: vertex position: Other ( Occiput anterior. Right compound hand presentation) Placenta delivery description: Spontaneous Cord Vessel Description: 3 Vessels score one minute: 9 score five minutes: 9 Narrative: She was admitted for medical induction of labor. She had Cytotec. She then had spontaneous rupture of membranes. She declined Pitocin after 6 hours. She did at some point agree to Pitocin augmentation she did progress to active labor. she did receive ampicillin after 18 hours of rupture membranes. She subsequently developed a fever of 101 and at the same time had increase in baseline heart rate and she was slightly tachy and she was Given diagnosis of chorioamnionitis she was also given Tylenol which did decrease the temperature and the tachycardia. She had an uncomplicated vaginal delivery. Pitocin was started and placenta delivered spontaneously and intact. She sustained a 1st degree laceration at the introitus. this was repaired with 3-0 Vicryl. She tolerated procedure well.
[2024-12-06] MEDS: OXYTOCIN 30 UNITS/NS 500 ML 30 UNITS/500 ML BAG 125 UNITS IV CONT (23:44)
[2024-12-06] MEDS: ceFAZolin 1 GM/NS 50 ML 1 GM/50 ML BAG IVPB (23:58)
[2024-12-07] VITALS (18 sets, daily range): BP systolic 82–128; BP diastolic 46–82; PULSE 70–143; RESP 14–18; TEMP 36.2–37.2; O2SAT 94–100
[2024-12-07] MEDS: CLINDAMYCIN 900 MG/D5W 50 ML 900 MG/50 ML PIGGYBACK 50 MG IVPB ×2 (00:47→08:58)
[2024-12-07] MEDS: diphenhydrAMINE HCl INJ 50 MG/ML VIAL 25 MG IV PUSH (01:54)
[2024-12-07] MEDS: BENZOCAINE 20% AER SPR (*SP) 56 GM CAN 1 SPRAY TOPICAL (01:55)
[2024-12-07] MEDS: WITCH HAZEL 40 PADS 1 PAD TOPICAL (01:55)
[2024-12-07 02:47] LABS: Gentamicin Random 2.8 ug/mL (5.0-12.0)
[2024-12-07] MEDS: ACETAMINOPHEN 325 MG TABLET 650 MG PO ×3 (03:20→15:49)
[2024-12-07] MEDS: IBUPROFEN 600 MG TABLET PO ×3 (03:20→15:49)
[2024-12-07] MEDS: ceFAZolin 1 GM/NS 50 ML 1 GM/50 ML BAG IVPB ×2 (05:55→14:00)
--- NOTE | 2024-12-07 06:26 | PC.NURSE ---
0699- This RN spoke with Laz in lab, phlebotmist will be paged to come draw pts am lab- pt is difficulty stick, this RN attempted x1 unsuccessfully.
--- NOTE | 2024-12-07 06:28 | PC.NURSE ---
0300- This RN assisted pt to void, pt very tired, falling asleep while toileting. Assisted pt back to bed, pt states she just wants to sleep. Pt and FOB aware to call this RN for assistance when needing to ambulate. Instructed FOB how to call and place order for breakfast trays.
[2024-12-07 07:13] LABS: Hematocrit 31.9 % (37.0-47.0); Hemoglobin 10.4 g/dL (12.0-15.0)
--- NOTE | 2024-12-07 08:42 | WPDANLDPN2 ---
Anes-Prog Note L&D Date/Time: 12/07/24 08:42 Comfortable throughout: labor and delivery Neuraxial method: epidural Epidural/Spinal procedure site: clean & non-tender Neuro status: Neuro function grossly intact. Cardiovascular status: normal Respiratory status: normal Airway patency: baseline Mental status: baseline Post-Op hydration status: normal Vital Signs: Last Vital Signs Temp 36.9 C 12/07/24 05:30 Pulse 95 12/07/24 05:30 Resp 14 12/07/24 05:30 BP 118/77 12/07/24 05:30 Pulse Ox 100 12/07/24 05:30 O2 Del Method Room Air 12/05/24 16:26 Pain score (VAS): 2 I/O: Intake & Output 12/06/24 12/07/24 12/07/24 23:59 07:59 15:59 Intake Total 50 Output Total 300 135 Balance -300 -85 Post-procedural complaints: none Patient feedback: Patient satisfied with anesthetic care.
[2024-12-07] MEDS: DOCUSATE SODIUM 100 MG CAPSULE PO (08:57)
[2024-12-07] MEDS: MULTIVIT/MIN/PREN/FOL AC/IRON TABLET 1 TAB PO (08:57)
--- NOTE | 2024-12-07 10:00 | PC.NURSE ---
Mother attempted to breastfeed baby but he was sleepy. We changed a poopy diaper and undressed baby. He woke but was still drowsy. Observed mother latching infant to the [left] breast in [cradle] position. Infant [was] able to maintain an appropriate latch. Mother [declines] nipple pain/discomfort [throughout feeding]. Encouraged mother to keep awake and nursing at the breast for 15 minutes. Reviewed responsive feeding and early feeding cue recognition. Mother voiced understanding of the education shared, to call for assistance if the infant does not latch or if there is discomfort with . name/number on communication board. Reported to the Primary RN.? Infant ate for 15 minutes on the left and then fell asleep. Mom did not offer the right breast at this time so we will start on the right at the next feeding.
--- NOTE | 2024-12-07 12:34 | PM.OBDSVD ---
OB - DS: Summary Hospital Course Hospital Course: she was admitted for medical induction of labor. Labor significant for prolonged rupture membranes and chorioamnionitis. she received IV antibiotics during labor and for 24 hours post delivery. She was afebrile post delivery. She had an uncomplicated vaginal delivery. she did well baby did well she had adequate pain control was ambulating well. Lochia was decreasing. OB Procedures : Ultrasound OB Procedures Intrapartum: Spontaneous Vag Delivery OB Procedures: : None Peripartum Data Delivery Method: Natural Vaginal Laceration Description: Perineal - 1st Degree complications: none Status at Discharge Functional status at discharge: independent ambulation Time Spent with Patient Time attestation: Total time spent providing and/or coordinating discharge services: Exam Const: General: cooperative Orientation/consciousness: oriented to person, oriented to place and oriented to time HENMT: Face/Nose/Sinus: Normal external nose present Eyes: General: appearance normal, both eyes and all related structures Resp: Effort & Inspection: normal respiratory effort GI: Inspection: normal to inspection Skin: General skin exam: normal color Neuro: General: oriented to person, oriented to place and oriented to time Extrem: General: normal to inspection and no calf tenderness Psych: Appearance: grossly normal Mental Status: mental status grossly normal DS: Data Data Completed and Pending Labs on day of discharge: Labs from last 24 hours 12/07/24 12/07/24 07:00 01:52 Hgb 10.4 L Hct 31.9 L Random Gentamicin 2.8 L Discharge Plan Discharge Attending physician on discharge: Yvon Urrutia Consulting providers: Carolann Mendoza Discharging Clinician: Yvon Urrutia Patient Disposition: Home Activity: may shower, no straining and pelvic rest Diet: regular Patient Instructions: Antibiotic Form Patient Language: Scottish Stand Alone Forms: General Discharge Information Follow-up/Referrals: Yvon Urrutia MD [Physician] - Call for Appointment (Follow up in 4-6 weeks) Discharge Medications: No Action DHA 200 mg capsule PO hyoscyamine sulfate [Levsin] 0.125 mg tablet 0.125 mg PO QID PRN (Reason: n/a) Date of admission: 12/05/24 14:09 Primary Care Provider: 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
--- NOTE | 2024-12-07 14:15 | PC.NURSE ---
Infant was transferred to the level 2 nursery for respiratory distress and sepsis workup. Mom was offered a hospital breast pump. She states that she brought her haakaa pump and wonders if that would work. Discussed that combining the haakaa with some hand expression could be sufficient if infant is not unable to eat for an extended amount of time. Hand expression handout provided with suggestion to watch the [place] hand expression video. Mom states she will let me know if she wants to use an electric pump or if she needs any assistance with hand expression. RN updated.
[2024-12-07] MEDS: GENTAMICIN SULFATE IVPB (15:50)
[2024-12-07] MEDS: DEXTROSE 5% IVPB (15:50)
[2024-12-09 10:27] VITALS: BP 126/89; PULSE 87; RESP 18; TEMP 37.3; O2SAT 100
== END 2024-12-07 18:10 | disposition home or self-care (01) | DRG 560 ==
LOC: ANHLDR 15:39 → ANHOB2 12-07 02:46
PROVIDERS: Admitting Provider Obstetrics & Gynecology; Visit Provider Obstetrics & Gynecology
DX: O32.6XX0 Maternal care for compound presentation, not applicable or unspecified (principal); O70.0 First degree perineal laceration during delivery; Z37.0 Single live birth; Z3A.40 40 weeks gestation of pregnancy; O41.1230 Chorioamnionitis, third trimester, not applicable or unspecified
CPT/HCPCS: 36415; 80170; 85014; 85018; 85025; 86593; 86703; 86850; 86900; 86901; 88307; A9270; G0432; J0690; J1200; J1580; J2590; J2795; J7120